=== PATIENT | male | born 1960 | race Caucasian/White ===

== ENCOUNTER → 2016-05-14 | Outpatient (CLI) | payer OTHER ==
[2016-05-14 13:30] LABS: BASO % 0.7 % (0.0-1.0); EOS # 0.2 K/mm3 (0.0-0.50); LARGE UNSTAINED CELL # 0.2 K/mm3 (0.0-0.4); LARGE UNSTAINED CELL % 3.2 % (0.0-4.0); LYMPH # 1.9 K/mm3 (1.5-4.5); LYMPH % 32.6 % (24.0-44.0); MEAN CORPUSCULAR HEMOGLOBIN 31.3 pg (27.0-33.0); MEAN CORPUSCULAR HGB CONC 33.7 g/dl (32.0-36.5); MEAN CORPUSCULAR VOLUME 92.8 fl (80.0-96.0); MONO # 0.4 K/mm3 (0.0-0.8); MONO % 6.1 % (0.0-5.0); NEUTROPHILS # 3.1 K/mm3 (1.8-7.7); NEUTROPHILS % 53.3 % (36.0-66.0); PLATELET COUNT, AUTOMATED 211 k/mm3 (150-450); WHITE BLOOD COUNT 5.9 K/mm3 (4.0-10.0)
[2016-05-14 13:41] LABS: ALBUMIN 3.8 GM/DL (3.2-5.2); ALKALINE PHOSPHATASE 107 U/L (45-117); ALT/SGPT 26 U/L (12-78); ANION GAP 9 MEQ/L (8-16); AST/SGOT 16 U/L (15-37); BILIRUBIN,TOTAL 0.4 MG/DL (0.2-1.0); BLOOD UREA NITROGEN 12 MG/DL (7-18); CALCIUM LEVEL 9.3 MG/DL (8.5-10.1); CARBON DIOXIDE LEVEL 28 MEQ/L (21-32); CHLORIDE LEVEL 104 MEQ/L (98-107); CHOLESTEROL LEVEL 193 MG/DL (<200); CREATININE FOR GFR 1.02 MG/DL (0.70-1.30); GLOMERULAR FILTRATION RATE > 60.0 (>56); GLUCOSE, FASTING 94 MG/DL (70-105); POTASSIUM SERUM 4.6 MEQ/L (3.5-5.1); SODIUM LEVEL 141 MEQ/L (136-145); TOTAL PROTEIN 7.6 GM/DL (6.4-8.2); TRIGLYCERIDES LEVEL 135 MG/DL (<150)
== END ==
LOC: M WUC 09:54
PROVIDERS: ATTEND Physician Assistant Medical
DX: Z12.5 Encounter for screening for malignant neoplasm of prostate (principal); Z79.1 Long term (current) use of non-steroidal anti-inflammatories (NSAID); E78.2 Mixed hyperlipidemia

== ENCOUNTER → 2017-02-27 | Outpatient (CLI) | payer OTHER ==
--- NOTE | 2017-03-01 13:31 | SLEEPCENT ---
DATE OF STUDY: 02/27/2017 ORDERED BY: ANA LAURA Godinez Nocturnal polysomnography was performed for assessment of sleep physiology in this patient with a history of excessive somnolence and nonrestorative sleep. 7 hours and 42 minutes of data were reviewed. There were 420 minutes of sleep identified. Sleep latency was normal at 11 minutes. Rapid eye movement (REM) was normal at 73 minutes. Sleep architecture showed some fragmentation but sleep progression was intact. There were 4 REM cycles noted. Overall sleep efficiency was 91.8%. The patient's electrocardiogram showed a sinus rhythm with an average heart rate of 68 beats per minute. EEG showed normal waveforms for awake and sleep. There were 124 respiratory events identified of 10 seconds in duration or greater for an apnea hypopnea index of 17.7. The events were primarily obstructive, not exclusive to sleep stage nor body posture. Arousals from respiratory events occurred 4.3 times per hour and oxygen desaturations were seen into the low 80s. Some limb activity was also noted. Limb movement arousal index was borderline at 5.1. IMPRESSION: Obstructive sleep apnea syndrome (G47.33). Apnea hypopnea index 17.7. RECOMMENDATION: The patient should be encouraged to return to the sleep disorder center for pressure therapy. In the interim, alcohol and sedative avoidance should be practiced and caution exercised during the operation of motor vehicles.
== END ==
LOC: M SLEEP 20:00
PROVIDERS: ATTEND Nurse Practitioner Adult Health
DX: G47.33 Obstructive sleep apnea (adult) (pediatric) (principal)

== ENCOUNTER → 2017-04-15 | Outpatient (CLI) | payer OTHER | LOC: M SLEEP 19:41 | DX: G47.33 Obstructive sleep apnea (adult) (pediatric) (principal) | CPT/HCPCS: 95811 ==

== ENCOUNTER → 2017-05-26 | Outpatient (CLI) | payer OTHER ==
[2017-05-26 09:41] LABS: ANION GAP 5 MEQ/L (8-16); BLOOD UREA NITROGEN 12 MG/DL (7-18); CALCIUM LEVEL 8.9 MG/DL (8.5-10.1); CARBON DIOXIDE LEVEL 30 MEQ/L (21-32); CHLORIDE LEVEL 107 MEQ/L (98-107); CHOLESTEROL LEVEL 185 MG/DL (<200); CHOLESTEROL RISK RATIO 4.868 (<5); CREATININE FOR GFR 1.03 MG/DL (0.70-1.30); GLOMERULAR FILTRATION RATE > 60.0 (>56); GLUCOSE, FASTING 101 MG/DL (70-100); HDL CHOLESTEROL 38 MG/DL (>40); LDL CHOLESTEROL 121.8 MG/DL (<100); NON-HDL-C 147 MG/DL; PROSTATIC SPECIFIC AG MONITOR 0.51 NG/ML (< 4.0); SODIUM LEVEL 142 MEQ/L (136-145); TRIGLYCERIDES LEVEL 126 MG/DL (<150)
== END ==
LOC: M WUC 08:11
DX: E78.2 Mixed hyperlipidemia (principal); Z12.5 Encounter for screening for malignant neoplasm of prostate
CPT/HCPCS: 84153

== ENCOUNTER → 2018-05-25 | Outpatient (CLI) | payer OTHER ==
[2018-05-25 11:22] LABS: BLOOD UREA NITROGEN 15 MG/DL (7-18); CALCIUM LEVEL 8.9 MG/DL (8.5-10.1); CARBON DIOXIDE LEVEL 28 MEQ/L (21-32); CHLORIDE LEVEL 104 MEQ/L (98-107); CHOLESTEROL LEVEL 184 MG/DL (<200); CHOLESTEROL RISK RATIO 5.111 (<5); CREATININE FOR GFR 1.04 MG/DL (0.70-1.30); GLOMERULAR FILTRATION RATE > 60.0 (>56); GLUCOSE, FASTING 84 MG/DL (70-100); HDL CHOLESTEROL 36 MG/DL (>40); LDL CHOLESTEROL 119 MG/DL (<100); NON-HDL-C 148 MG/DL; POTASSIUM SERUM 4.8 MEQ/L (3.5-5.1); SODIUM LEVEL 139 MEQ/L (136-145); TRIGLYCERIDES LEVEL 143 MG/DL (<150)
== END ==
LOC: M WUC 08:04
PROVIDERS: ATTEND Physician Assistant Medical
DX: E78.2 Mixed hyperlipidemia (principal); Z12.5 Encounter for screening for malignant neoplasm of prostate
CPT/HCPCS: 36415; 80048; 80061; G0103

== ENCOUNTER → 2019-05-23 | Outpatient (CLI) | payer OTHER ==
[2019-05-23 13:21] LABS: BASO # 0.1 10^3/uL (0.0-0.2); BASO % 0.8 % (0.0-1.0); EOS # 0.2 10^3/uL (0.0-0.5); EOS % 2.9 % (0.0-3.0); HEMOGLOBIN 14.6 g/dl (13.5-17.5); LYMPH % 33.8 % (24.0-44.0); MEAN CORPUSCULAR HEMOGLOBIN 31.5 pg (27.0-33.0); MEAN CORPUSCULAR HGB CONC 33.2 g/dl (32.0-36.5); MONO # 0.6 10^3/uL (0.0-0.8); MONO % 9.5 % (0.0-5.0); NEUTROPHILS # 3.1 10^3/uL (1.5-8.5); NEUTROPHILS % 52.7 % (36.0-66.0); PLATELET COUNT, AUTOMATED 234 10^3/uL (150-450); RED BLOOD COUNT 4.63 10^6/uL (4.30-6.10); WHITE BLOOD COUNT 5.9 10^3/uL (4.0-10.0)
[2019-05-23 13:30] LABS: ALBUMIN 3.8 GM/DL (3.2-5.2); ALT/SGPT 27 U/L (12-78); BILIRUBIN,TOTAL 0.5 MG/DL (0.2-1.0); BLOOD UREA NITROGEN 15 MG/DL (7-18); CALCIUM LEVEL 9.3 MG/DL (8.5-10.1); CARBON DIOXIDE LEVEL 32 MEQ/L (21-32); CHLORIDE LEVEL 105 MEQ/L (98-107); CHOLESTEROL LEVEL 189 MG/DL (<200); CHOLESTEROL RISK RATIO 5.727 (<5); CREATININE FOR GFR 1.05 MG/DL (0.70-1.30); GLOMERULAR FILTRATION RATE > 60.0 (>56); GLUCOSE, FASTING 97 MG/DL (70-100); HDL CHOLESTEROL 33 MG/DL (>40); LDL CHOLESTEROL 109 MG/DL (<100); NON-HDL-C 156 MG/DL; POTASSIUM SERUM 5.2 MEQ/L (3.5-5.1); SODIUM LEVEL 140 MEQ/L (136-145); TOTAL PROTEIN 7.3 GM/DL (6.4-8.2); TRIGLYCERIDES LEVEL 233 MG/DL (<150)
== END ==
LOC: M WUC 08:42
PROVIDERS: ATTEND Family Medicine
DX: Z00.00 Encounter for general adult medical examination without abnormal findings (principal); E78.5 Hyperlipidemia, unspecified; Z11.59 Encounter for screening for other viral diseases

== ENCOUNTER → 2020-01-29 | Outpatient (CLI) | payer OTHER ==
[2020-01-29 10:34] LABS: CHOLESTEROL RISK RATIO 4.159 (<5)
== END ==
LOC: M WUC 08:26
PROVIDERS: ATTEND Family Medicine
DX: E78.5 Hyperlipidemia, unspecified (principal)

== ENCOUNTER 2020-05-26 17:55 | Emergency (ER) | payer OTHER ==
[~2020-05-26] VITALS: Ht 182.9 cm; Wt 111.0 kg
[2020-05-26] MEDS ORDERED: MONT10TA10 PO (18:09)
[2020-05-26] MEDS ORDERED: VITA500079 PO (18:09)
[2020-05-26] MEDS ORDERED: OMEP1CAP73 PO (18:09)
[2020-05-26] MEDS ORDERED: LORA10TA PO (18:09)
[2020-05-26] MEDS ORDERED: FLON27.5 (18:09)
[2020-05-26] MEDS ORDERED: KETOROLAC 30 MG/ML 1ML VIAL IV ONE (19:05)
[2020-05-26] MEDS ORDERED: NS 1,000 ML IV ONE (19:05)
[2020-05-26] MEDS ORDERED: TAMSULOSIN 0.4 MG CAP PO ONE (19:05)
[2020-05-26 19:36] LABS: BASO % 0.2 % (0.0-1.0); EOS % 0.2 % (0.0-3.0); HEMATOCRIT 44.9 % (42.0-52.0); HEMOGLOBIN 14.5 g/dl (13.5-17.5); LYMPH # 1.2 10^3/uL (1.5-5.0); LYMPH % 9.8 % (24.0-44.0); MEAN CORPUSCULAR HEMOGLOBIN 30.2 pg (27.0-33.0); MEAN CORPUSCULAR HGB CONC 32.3 g/dl (32.0-36.5); MEAN CORPUSCULAR VOLUME 93.5 fl (80.0-96.0); MONO # 0.8 10^3/uL (0.0-0.8); MONO % 6.7 % (2.0-8.0); NEUTROPHILS # 10.3 10^3/uL (1.5-8.5); NEUTROPHILS % 82.6 % (36.0-66.0); PLATELET COUNT, AUTOMATED 233 10^3/uL (150-450); WHITE BLOOD COUNT 12.4 10^3/uL (4.0-10.0)
[2020-05-26 20:01] LABS: ALBUMIN 4.4 GM/DL (3.2-5.2); BILIRUBIN,DIRECT 0.1 MG/DL (0.0-0.2); BILIRUBIN,TOTAL 0.6 MG/DL (0.2-1.0); TOTAL PROTEIN 7.7 GM/DL (6.4-8.2)
--- NOTE | 2020-05-26 20:07 | REPVR ---
PROCEDURE INFORMATION: Exam: CT Abdomen And Pelvis Without Contrast Exam date and time: 05/26/2020 7:19 PM Age: 59 years old Clinical indication: Abdominal pain; Additional info: R flank pain radiating into R testicle. TECHNIQUE: Imaging protocol: Computed tomography of the abdomen and pelvis without contrast. Radiation optimization: All CT scans at this facility use at least one of these dose optimization techniques: automated exposure control; mA and/or kV adjustment per patient size (includes targeted exams where dose is matched to clinical indication); or iterative reconstruction. COMPARISON: No relevant prior studies available. FINDINGS: Lungs: There is bibasilar atelectasis. The lungs were not fully imaged. Heart: No cardiomegaly or pericardial effusion. Mediastinal space: There is a small sliding hiatal hernia. Diaphragm: Intact. Liver: Unremarkable. No liver lesion is identified. The contour of the liver is smooth. No hepatomegaly is noted. Gallbladder and bile ducts: No calcified gallstones are noted. No gallbladder wall thickening, pericholecystic fluid, or pericholecystic inflammatory changes are identified. No dilation of the bile ducts is noted. No calcified stones are seen in the common bile duct. Pancreas: Unremarkable. No dilation of the main pancreatic duct is noted. There is no inflammatory fat stranding around the pancreas to suggest acute pancreatitis. Spleen: Unremarkable. No splenomegaly is noted. Adrenal glands: Normal. No adrenal mass is noted. Kidneys and ureters: There is mild right hydronephrosis with right perinephric and right periureteral stranding secondary to a 3 mm calculus in the right distal ureter (image 123 of the axial series 201). No calculi are noted in the renal collecting systems or left ureter. No renal lesion is identified. Stomach and bowel: The intra-abdominal portion of the stomach and small bowel are unremarkable. There is sigmoid diverticulosis without evidence for diverticulitis. There is no evidence for a bowel obstruction, colitis, pneumatosis intestinalis, intussusception, volvulus, or perforated viscus. Appendix: Normal. There is no evidence for appendicitis. Intraperitoneal space: Unremarkable. No fluid collection. No free air. Retroperitoneal space: No fluid collection. No mass. Vasculature: The abdominal aorta is normal in caliber. There are mild atherosclerotic calcifications. Lymph nodes: Normal. No enlarged lymph nodes. Urinary bladder: The partially distended urinary bladder is unremarkable. No stones or masses are seen in the bladder. Reproductive: There is a punctate calcification in the prostate gland. The seminal vesicles are unremarkable. Bones/joints: There is no fracture or dislocation. No suspicious osteolytic or osteoblastic lesion. There is partial ankylosis of the right sacroiliac joint. There are degenerative changes involving the lumbar spine. There is mild osteoarthritis of both hip joints. Soft tissues: There is a small fat containing umbilical hernia. IMPRESSION: 1. 3 mm calculus in the right distal ureter and mild right hydroureteronephrosis. 2. Sigmoid diverticulosis without evidence for diverticulitis. 3. Small fat containing umbilical hernia. Electronically signed by: Shashank Cary On 05/26/2020 20:08:43 PM
[2020-05-26] MEDS ORDERED: HYDR-3713 PO (20:39)
[2020-05-26] MEDS ORDERED: FLOM0.4C39 PO (20:39)
[2020-05-26 21:18] VITALS: BP 134/72
== END 2020-05-26 22:30 | disposition home or self-care (01) ==
LOC: M ED 17:55
DX: N20.1 Calculus of ureter (principal); G47.33 Obstructive sleep apnea (adult) (pediatric); Z88.8 Allergy status to other drugs, medicaments and biological substances; Z79.899 Other long term (current) drug therapy
CPT/HCPCS: 74176; 80047; 80076; 81001; 83690; 85025; 96361; 96374; 99284; J1885

== ENCOUNTER 2020-05-27 19:07 | Emergency (ER) | payer OTHER ==
[~2020-05-27] VITALS: Ht 182.9 cm; Wt 111.0 kg
[~2020-05-27 19:07] MED LIST: FLOM0.4C39 PO; FLON27.5; HYDR-3713 PO; LORA10TA PO; MONT10TA10 PO; OMEP1CAP73 PO; VITA500079 PO
[2020-05-27 20:52] LABS: BASO % 0.2 % (0.0-1.0); EOS % 0.2 % (0.0-3.0); HEMOGLOBIN 13.9 g/dl (13.5-17.5); LYMPH # 0.9 10^3/uL (1.5-5.0); LYMPH % 8.3 % (24.0-44.0); MEAN CORPUSCULAR HEMOGLOBIN 31.1 pg (27.0-33.0); MEAN CORPUSCULAR HGB CONC 33.1 g/dl (32.0-36.5); MONO # 0.7 10^3/uL (0.0-0.8); MONO % 6.6 % (2.0-8.0); NEUTROPHILS # 8.9 10^3/uL (1.5-8.5); NEUTROPHILS % 84.3 % (36.0-66.0); PLATELET COUNT, AUTOMATED 190 10^3/uL (150-450); RED BLOOD COUNT 4.47 10^6/uL (4.30-6.10); WHITE BLOOD COUNT 10.5 10^3/uL (4.0-10.0)
[2020-05-27 21:20] LABS: APPEARANCE, URINE CLEAR (CLEAR); BACTERIA, URINE AUTO NEGATIVE (NEGATIVE); BILIRUBIN, URINE AUTO NEGATIVE (NEGATIVE); BLOOD, URINE BLOOD 2+ (NEGATIVE); COLOR, URINE YELLOW (YELLOW); GLUCOSE, URINE (UA) AUTO NEGATIVE (NEGATIVE); KETONE, URINE AUTO 2+ mg/dL (NEGATIVE); LEUKOCYTE ESTERASE, URINE AUTO NEGATIVE (NEGATIVE); MUCUS, URINE SMALL (NEGATIVE); NITRITE, URINE AUTO NEGATIVE (NEGATIVE); PROTEIN, URINE AUTO 1+ mg/dL (NEGATIVE); RBC, URINE AUTO 11 /HPF (0-3); SPECIFIC GRAVITY URINE AUTO 1.026 (1.002-1.035); SQUAMOUS EPITHELIAL CELL UR AU 0 /HPF (0-6); UROBILINOGEN, URINE AUTO 0.2 mg/dL (0.0-2.0); WBC, URINE AUTO 2 /HPF (0-3)
--- NOTE | 2020-05-27 21:21 | REPVR ---
PROCEDURE INFORMATION: Exam: CT Head Without Contrast Exam date and time: 05/27/2020 8:28 PM Age: 59 years old Clinical indication: Dizziness; Additional info: Dizzy TECHNIQUE: Imaging protocol: Computed tomography of the head without contrast. Radiation optimization: All CT scans at this facility use at least one of these dose optimization techniques: automated exposure control; mA and/or kV adjustment per patient size (includes targeted exams where dose is matched to clinical indication); or iterative reconstruction. COMPARISON: No relevant prior studies available. FINDINGS: Brain: Normal. No hemorrhage. Unremarkable white matter. No mass effect. Cerebral ventricles: No ventriculomegaly. Bones/joints: Unremarkable. No acute fracture. Paranasal sinuses: Visualized sinuses are unremarkable. No fluid levels. Mastoid air cells: Visualized mastoid air cells are well aerated. Soft tissues: Unremarkable. IMPRESSION: No acute intracranial abnormality. Electronically signed by: Zackery Joyner On 05/27/2020 21:22:30 PM
[2020-05-27 21:27] LABS: ALBUMIN 3.6 GM/DL (3.2-5.2); BILIRUBIN,DIRECT 0.2 MG/DL (0.0-0.2); BILIRUBIN,TOTAL 0.7 MG/DL (0.2-1.0); TOTAL PROTEIN 6.8 GM/DL (6.4-8.2)
[2020-05-27 21:30] LABS: RSV AMPLIFICATION NEGATIVE (NEGATIVE)
[2020-05-27] MEDS ORDERED: NORCO, ANEXSIA 5/325MG TABLET (HYDROcodone/ACETAMINOPHEN) PO ONE (21:45)
[2020-05-27 21:56] VITALS: BP 139/67
--- NOTE | 2020-05-28 00:37 | ECGEPIP ---
[facility] - ED Test Date: 2020-05-27 Pat Name: JOSIAH MENA Department: Room: - Gender: Male Health Companion: EVELYN : 1960 Requested By: SEVERINO MERIDA Order Number: [id number] Reading MD: Avi Jeff Measurements Intervals [place] Rate: 72 P: 47 [place]: 150 QRS: 24 QRSD: 82 T: 29 QT: 378 QTc: 413 Interpretive Statements Normal sinus rhythm NO PRIORS FOR COMPARISON Electronically Signed on 05-28-2020 0:36:53 EST by Avi Jeff
== END 2020-05-27 21:58 | disposition home or self-care (01) ==
LOC: M ED 19:07
DX: B34.9 Viral infection, unspecified (principal); F41.9 Anxiety disorder, unspecified; Z79.899 Other long term (current) drug therapy; Z88.8 Allergy status to other drugs, medicaments and biological substances

== ENCOUNTER → 2020-06-09 | Outpatient (REF) | payer OTHER | LOC: M SMT 13:25 | PROVIDERS: ATTEND Nurse Practitioner Family | DX: N20.0 Calculus of kidney (principal) ==

== ENCOUNTER → 2020-07-21 | Outpatient (CLI) | payer OTHER ==
[2020-07-21 10:32] LABS: BASO % 0.7 % (0.0-1.0); EOS # 0.2 10^3/uL (0.0-0.5); EOS % 2.9 % (0.0-3.0); HEMATOCRIT 43.7 % (42.0-52.0); HEMOGLOBIN 14.1 g/dl (13.5-17.5); LYMPH # 1.8 10^3/uL (1.5-5.0); LYMPH % 32.7 % (24.0-44.0); MEAN CORPUSCULAR HEMOGLOBIN 30.6 pg (27.0-33.0); MEAN CORPUSCULAR HGB CONC 32.3 g/dl (32.0-36.5); MEAN CORPUSCULAR VOLUME 94.8 fl (80.0-96.0); MONO # 0.5 10^3/uL (0.0-0.8); MONO % 9.5 % (2.0-8.0); PLATELET COUNT, AUTOMATED 238 10^3/uL (150-450); RED BLOOD COUNT 4.61 10^6/uL (4.30-6.10); WHITE BLOOD COUNT 5.5 10^3/uL (4.0-10.0)
[2020-07-21 11:02] LABS: ALBUMIN 3.8 GM/DL (3.2-5.2); ALT/SGPT 20 U/L (12-78); BILIRUBIN,TOTAL 0.5 MG/DL (0.2-1.0); BLOOD UREA NITROGEN 9 MG/DL (7-18); CALCIUM LEVEL 9.2 MG/DL (8.5-10.1); CARBON DIOXIDE LEVEL 29 MEQ/L (21-32); CHLORIDE LEVEL 106 MEQ/L (98-107); CHOLESTEROL LEVEL 176 MG/DL (<200); CHOLESTEROL RISK RATIO 4.292 (<5); CREATININE FOR GFR 0.92 MG/DL (0.70-1.30); GLOMERULAR FILTRATION RATE > 60.0 (>56); GLUCOSE, FASTING 101 MG/DL (70-100); HDL CHOLESTEROL 41 MG/DL (>40); LDL CHOLESTEROL 112 MG/DL (<100); NON-HDL-C 135 MG/DL; POTASSIUM SERUM 4.6 MEQ/L (3.5-5.1); SODIUM LEVEL 139 MEQ/L (136-145); TOTAL PROTEIN 7.1 GM/DL (6.4-8.2); TRIGLYCERIDES LEVEL 113 MG/DL (<150)
== END ==
LOC: M WUC 08:16
PROVIDERS: ATTEND Family Medicine
DX: Z00.00 Encounter for general adult medical examination without abnormal findings (principal)

== ENCOUNTER 2021-02-18 07:46 | Observation (INO) | payer OTHER ==
[~2021-02-18] VITALS: Ht 182.9 cm; Wt 97.6 kg
[~2021-02-18 07:46] MED LIST changes: -FLON27.5; +FLON27.5 NARES
[2021-02-18 08:25] LABS: BASO % 0.3 % (0.0-1.0); EOS # 0.1 10^3/uL (0.0-0.5); EOS % 0.9 % (0.0-3.0); HEMATOCRIT 42.3 % (42.0-52.0); HEMOGLOBIN 14.5 g/dl (13.5-17.5); LYMPH # 0.8 10^3/uL (1.5-5.0); MEAN CORPUSCULAR HEMOGLOBIN 31.8 pg (27.0-33.0); MEAN CORPUSCULAR HGB CONC 34.3 g/dl (32.0-36.5); MEAN CORPUSCULAR VOLUME 92.8 fl (80.0-96.0); MONO # 0.5 10^3/uL (0.0-0.8); MONO % 5.1 % (2.0-8.0); NEUTROPHILS # 8.2 10^3/uL (1.5-8.5); NEUTROPHILS % 85.2 % (36.0-66.0); PLATELET COUNT, AUTOMATED 200 10^3/uL (150-450); RED BLOOD COUNT 4.56 10^6/uL (4.30-6.10); WHITE BLOOD COUNT 9.7 10^3/uL (4.0-10.0)
--- NOTE | 2021-02-18 08:53 | REP ---
INDICATION: trauma COMPARISON: 05/27/2020 TECHNIQUE: Axial noncontrast images from the skull base to the vertex with coronal reformations. This CT examination was performed using the following dose reduction techniques: Automated exposure control, adjustment of mA and/or kv according to the patient's size, and use of iterative reconstruction technique. FINDINGS: The ventricles, sulci, and cisterns are normal in position and appearance. Lind-white differentiation is maintained. No acute intracranial hemorrhage, mass/mass effect, pathology or trauma/injury. No evidence for acute infarction. No extra-axial fluid collection. Calvarium is intact. Paranasal sinuses and mastoid air cells are clear. Artifact limits evaluation of the posterior fossa and cerebellum. IMPRESSION: No evidence for acute intracranial pathology or trauma/injury. <Electronically signed by Femi Dumont > 02/18/21 [id number]
--- NOTE | 2021-02-18 08:54 | REP ---
INDICATION: trauma COMPARISON: None. TECHNIQUE: Axial noncontrast images from the skull base to the thoracic inlet with coronal and sagittal re-formations This CT examination was performed using the following dose reduction techniques: Automated exposure control, adjustment of mA and/or kv according to the patient's size, and use of iterative reconstruction technique. FINDINGS: Mild age-related multilevel degenerative changes. Normal alignment and lordosis is maintained. Cervical vertebral bodies including transverse processes and spinous processes are intact and there is no evidence for acute fracture / compression injury or subluxation. Spinal canal is patent. Posterior elements are intact. Paravertebral soft tissues are normal. IMPRESSION: Age-related degenerative changes. No evidence for acute pathology or trauma/injury. <Electronically signed by Femi Dumont > 02/18/21 [id number]
[2021-02-18 09:06] LABS: BLOOD UREA NITROGEN 13 MG/DL (7-18); CARBON DIOXIDE LEVEL 24 MEQ/L (21-32); CHLORIDE LEVEL 110 MEQ/L (98-107); CREATININE FOR GFR 0.98 MG/DL (0.70-1.30); FREE T4 1.07 NG/DL (0.76-1.46); GLOMERULAR FILTRATION RATE > 60.0 (>56); GLUCOSE, FASTING 125 MG/DL (70-100); MAGNESIUM LEVEL 2.2 MG/DL (1.8-2.4); POTASSIUM SERUM 4.8 MEQ/L (3.5-5.1); SODIUM LEVEL 140 MEQ/L (136-145)
[2021-02-18] MEDS ORDERED: ONDANSETRON 4MG/2ML VIAL IV ONE (09:10)
--- NOTE | 2021-02-18 09:11 | ECGEPIP ---
[facility] - ED Test Date: 2021-02-18 Pat Name: JOSIAH MENA Department: Room: - Gender: Male [employer] Sales Associate: Krysta ARANGO : 1960 Requested By: Natividad Byrne Order Number: [id number] Reading MD: Avi Jeff Measurements Intervals [place] Rate: 82 P: 54 [place]: 154 QRS: 32 QRSD: 86 T: 38 QT: 384 QTc: 448 Interpretive Statements Normal sinus rhythm BASELINE ARTIFACT AFFECTS INTERPRETATION Electronically Signed on 02-18-2021 9:11:26 EST by Avi Jeff
[2021-02-18] MEDS: MORPHINE 2 MG/ML 1ML VIAL (J2270) IV PRN ×2 (09:22→10:44)
--- OUTSIDE RECORDS SUMMARY | 2021-02-18 09:24 | CCD | Continuity of Care Document ---
Author Author Geoff NEELY M.D. Organization Unknown Address [address], [place] [address] Phone [phone] Care Team Providers Care Head Transfer Clerk Name Role Phone Leena Villatoro Unavailable Problems Active Problems Provider Date Allergic rhinitis due to pollen Onset: 0 04/13/2018 Note: On IT. 4+ reaction to grass pollen with 3+ reaction to ragweed and willow tree pollen on scratch test. 4+ reaction to weed pollen on intradermal test Completed 2018. Allergic rhinitis due to house dust mite Sanford Neely M.D. Onset: 09/25/2019 Note: On IT. 3+ reaction to dust mites o n intradermal test. Completed 2018. Social History Type Date Description Comments Sex Unknown Tobacco Use Start: 03/21/96 End: 03/21/99 Patient is a forme r smoker Document: 03/27/19 - History-Allergy Smoking Status Reviewed: 09/24/20 Patient is a former smoker Do cument: 03/27/19 - History-Allergy Allergies and adverse reactions Active Allergies Criticality Reaction | Severity Comments Date Mickey Unable to assess criticality 03/27/2019 Medications Active Medications SIG Qnty Indications Ordering Provide r Date Loratadine 10mg Tablets take 1 tablet (10 mg) by oral route once daily 90tabs Sanford Neely M.D. 05/23/2019 Azelastine HCL (Nasal) 137mcg/[place] Solution 2 sprays each nostril every day every morning for 90 days 90ml J30.89 Sanford Neely M.D. 04/02/2019 Fluticasone Propionate Nasal [place] Light Aller gy Relief 24- Hour 50mcg/Act Suspension inhale 2 puffs by nasal route once a day (in the evening) Unknown 09/26/2018 Montelukast Sodium 10mg Tablets take 1 tablet (10 mg) by oral route once daily in the evening 90tabs J30.8 9 Sanford Neely M.D. 09/26/2018 Omeprazole Magnesium 20.6(20Base) mg Capsules DR take 1 capsule (20 mg) by oral route once daily before a meal Unknown Vitamin D3 50mcg (1999 Ut) Capsules Unknown Medications Administered in Office Medication SIG Qnty Indications Ordering Provider Date Allergy Injection 2 Or More Injection Sanford Neely M.D. 02/09/2021 Allergy Injection 2 Or More Injection Sanford Neely M.D. 01/12/2021 Allergy Injection 2 Or More Injection Sanford Neely M.D. 12/22/2020 Allergy Injection 2 Or More Injection Sanford Neely M.D. 12/03/2020 Allergy Injection 2 Or More Injection Sanford Neely M.D. 11/10/2020 Allergy Injection 2 Or More Injection Sanford Neely M.D. 10/13/2020 Allergy Injection 2 Or More Injection Sanford Neely M.D. 09/24/2020 Allergy Injection 2 Or More Injection Sanford Neely M.D. 09/02/2020 Allergy Injection 2 Or More Injection Sanford Neely M.D. 08/13/2020 Allergy Injection 2 Or More Injection Sanford Neely M.D. 07/21/2020 Allergy Injection 2 Or More Injection Sanford Neely M.D. 06/30/2020 Allergy Injection 2 Or More Injection Sanford Neely M.D. 06/09/2020 Allergy Injection 2 Or More Injection Sanford Neely M.D. 05/12/2020 Allergy Injection 2 Or More Injection Sanford Neely M.D. 04/21/2020 Allergy Injection 2 Or More Injection Sanford Neely M.D. 03/31/2020 Allergy Injection 2 Or More Injection Sanford Neely M.D. 03/11/2020 Allergy Injection 2 Or More Injection Sanford Neely M.D. 02/19/2020 Allergy Injection 2 Or More Injection Sanford Neely M.D. 01/29/2020 Allergy Injection 2 Or More Injection Sanford Neely M.D. 01/10/2020 Allergy Injection 2 Or More Injection ANA LAURA Fry 12/17/2019 Allergy Injection 2 Or More Injection Sanford Neely M.D. 12/17/2019 Allergy Injection 2 Or More Injection Sanford Neely M.D. 11/28/2019 Allergy Injection 2 Or More Injection Sanford Neely M.D. 11/05/2019 Allergy Injection 2 Or More Injection Sanford Neely M.D. 10/16/2019 Allergy Injection 2 Or More Injection Sanford Neely M.D. 09/26/2019 Allergy Injection 2 Or More Injection Sanford Neely M.D. 09/04/2019 Allergy Injection 2 Or More Injection Sanford Neely M.D. 08/15/2019 Allergy Injection 2 Or More Injection Sanford Neely M.D. 07/25/2019 Allergy Injection 2 Or More Injection Sanford Neely M.D. 07/04/2019 Allergy Injection 2 Or More Injection Sanford Neely M.D. 06/13/2019 Allergy Injection 2 Or More Injection Sanford Neely M.D. 05/23/2019 Allergy Injection 2 Or More Injection Sanford Neely M.D. 05/01/2019 Allergy Injection 2 Or More Injection Sanford Neely M.D. 04/11/2019 Allergy Injection 2 Or More Injection Marc Gunn.Elias 03/19/2019 Allergy Injection 2 Or More Injection Sanford Neely M.D. 02/26/2019 Allergy Injection 2 Or More Injection Marc Gunn.Elias 02/06/2019 Allergy Injection 2 Or More Injection Marc Gunn.DWalter 01/17/2019 Allergy Injection 2 Or More Injection Marc Gunn.Elias 01/05/2019 Allergy Injection 2 Or More Injection Sanford Neely M.D. 12/28/2018 Allergy Injection 2 Or More Injection CHINTAN Mckeon 12/19/2018 Allergy Injection 2 Or More Injection Sanford Neely M.D. 12/19/2018 Allergy Injection 2 Or More Injection CHINTAN Mckeon 12/12/2018 Allergy Injection 2 Or More Injection Sanford Neely M.D. 12/12/2018 Allergy Injection 2 Or More Injection Sanford Neely M.D. 12/05/2018 Allergy Injection 2 Or More Injection Sanford Neely M.D. 11/28/2018 Allergy Injection 2 Or More Injection Sanford Neely M.D. 11/22/2018 Allergy Injection 2 Or More Injection Sanford Neely M.D. 11/16/2018 Immunizations Description No Information Available Vital Signs Date Vital Result Comment 09/24/2020 8:41am Weight 218.25 lb Height 72 inches 6'0" Heart Rate 63 /min Respiratory Rate 16 /min BP Systolic 109 mmHg BP Diastolic 70 mmHg BMI (Body Mass Index) 29.6 kg/m2 09/25/2019 8:40am Weight 249.00 lb Height 72 inches 6'0" Heart Rate 85 /min Respiratory Rate 18 /min BP Systolic 116 mmHg BP Diastolic 74 mmHg BMI (Body Mass Index) 33.8 kg/m2 Results Description No Information Available Procedures Date Code Description Status 02/09/2021 49858 Allergy Injection 2 Or More Comp leted 01/12/2021 67689 Allergy Injection 2 Or More Comp leted 01/09/2021 68086 Allergy Antigens Single Or Multi ple Completed 12/22/2020 48837 Allergy Injection 2 Or More Comp leted 12/03/2020 97219 Allergy Injection 2 Or More Comp leted 11/10/2020 92068 Allergy Injection 2 Or More Comp leted 10/13/2020 11263 Allergy Injection 2 Or More Comp leted 09/24/2020 50195 Office/Outpatient Established Lo w MDM 20-29 Min Completed 09/24/2020 91756 Allergy Injection 2 Or More Comp leted 09/02/2020 23266 Allergy Injection 2 Or More Comp leted 08/22/2020 38939 Allergy Antigens Single Or Multi ple Completed 08/13/2020 89288 Allergy Injection 2 Or More Comp leted Medical Devices Description No Information Available Encounters Description No Information Available Assessments Date Code Description Provider 02/09/2021 J30.1 Allergic rhinitis due to pollen Sanford Neely M.D. 02/09/2021 J30.89 Other allergic rhinitis Sanford Neely M.D. Plan of Treatment Future Appointment(s):* 03/02/2021 10:00 am - Allergy Injection at Main Office * 09/23/2021 8:45 am - Sanford Neely M.D. at Main Office 09/24/2020 - Sanford Neely M.D.* J30.89 Allergic rhinitis due to dust mites.* Recommendations:* Effective allergen avoidance measures were reviewed and recommended. The patient should continue on maintenance allergen immunotherapy as per protocol. The risks and benefits associated with allergen IT were reviewed and discussed. It was discussed that he may try to discontinue Singulair and see how he does without it. If his rhinitis symptoms increase, may consider to restart steroid-based nasal spray (Flonase). The nasal spray should be used on a consistent, daily basis to be effective. He may take oral antihistamine as needed for itching and/or sneezing and on days he gets his allergy injections. * J30.1 Allergic rhinitis due to pollen* Recommendations:* Effective allergen avoidance measures were reviewed and recommended. See additional recommendations above. * All * Follow up:* 12 months. Sooner if needed. Functional Status Description No Information Available Mental Status Description No Information Available Referrals Description No Information Available
--- OUTSIDE RECORDS SUMMARY | 2021-02-18 09:24 | CCD | Continuity of Care Document ---
Author Author Geoff MARTINEZ MD Organization Unknown Address [address] [address] Phone [phone] Care Team Providers Care Wheat And Oats Flake Miller Name Role Phone Jackie Walters M.D. AUTM [phone] AUTM Unavailable Problems Active Problems Provider Date Disturbance of consciousness Carrie Mireles A.N.P. Onse t: 02/16/2017 Sleep apnea Carrie Mireles A.[place]uan Onset: 2016 Social History Type Date Description Comments Sex Unknown ETOH Use 1 A Day Recreational Drug Use Denies Drug Use Tobacco Use Start: Unknown End: Unknown Patient is a former smoker 1/2 ppd for 1 year Quit 2000 Allergies and adverse reactions Active Allergies Criticality Reaction | Severity Comments Date Mickey Unable to assess criticality 02/16/2017 Medications Active Medications SIG Qnty Indications Ordering Provide r Date Omeprazole 20mg Capsules DR 1 by mouth every day Unknown Loratadine 10mg Tablets 1 by mouth every day Unknown Vitamin D3 Maximum Strength 125mcg (5000 Ut) Capsules 1 qd Unknown Montelukast Sodium 10mg Tablets 1 qd Unknown Fluticasone Propionate 50mcg/Act Suspension 2 sprays to each nostril daily as needed Unknown Azelastine HCL (Nasal) 0.1% Soluti on as needed Unknown Aleve 220mg Capsules as neede d Unknown Allergy Shots every 3 weeks Unknown Immunizations Description No Information Available Vital Signs Date Vital Result Comment 02/16/2021 9:33am BP Systolic 151 mmHg BP Diastolic 84 mmHg Heart Rate 59 /min Body Temperature 98.3 F Height 72 inches 6'0" Weight 217.25 lb BMI (Body Mass Index) 29.5 kg/m2 [facility] Body Weight 178 lb Weight 98.545 kg BSA (Body Surface Area) 2.21 m2 03/22/2017 9:01am BP Systolic 128 mmHg BP Diastolic 70 mmHg Heart Rate 80 /min O2 % BldC Oximetry 97 % Height 72.5 inches Weight 250.00 lb BMI (Body Mass Index) 33.4 kg/m2 Weight 113.398 kg Results Description No Information Available Procedures Description No Information Available Medical Devices Description No Information Available Encounters Description No Information Available Assessments Description No Information Available Plan of Treatment No Information Available Functional Status Description No Information Available Mental Status Description No Information Available Referrals Refer to Reason for Referral Status Appt Date Phuc Martinez M.D. COLONOSCOPY Scheduled 02/16/2021 [facility] [address] [place] [phone]
--- OUTSIDE RECORDS SUMMARY | 2021-02-18 09:25 | CCD ---
Author Author [facility] Organization [facility] Address Unknown Phone Unavailable Care Team Providers Care Air Hose Coupler Name Role Phone ELIZABETH NEELY MD Unavailable Unavailable ELIZABETH NEELY MD Unavailable Unavailable ELIZABETH NEELY MD Unavailable Unavailable ELIZABETH NEELY MD Unavailable Unavailable ELIZABETH NEELY MD Unavailable Unavailable ELIZABETH NEELY MD Unavailable Unavailable ELIZABETH NEELY MD Unavailable Unavailable ELIZABETH NEELY MD Unavailable Unavailable ELIZABETH NEELY MD Unavailable Unavailable ELIZABETH NEELY MD Unavailable Unavailable ELIZABETH NEELY MD Unavailable Unavailable ELIZABETH NEELY MD Unavailable Unavailable ELIZABETH NEELY MD Unavailable Unavailable ELIZABETH NEELY MD Unavailable Unavailable ELIZABETH NEELY MD Unavailable Unavailable ELIZABETH NEELY MD Unavailable Unavailable ELIZABETH NEELY MD Unavailable Unavailable ELIZABETH NEELY MD Unavailable Unavailable ELIZABETH NEELY MD Unavailable Unavailable ELIZABETH NEELY MD Unavailable Unavailable ELIZABETH NEELY MD Unavailable Unavailable ELIZABETH NEELY MD Unavailable Unavailable ELIZABETH NEELY MD Unavailable Unavailable ELIZABETH NEELY MD Unavailable Unavailable ELIZABETH NEELY MD Unavailable Unavailable ELIZABETH NEELY MD Unavailable Unavailable ELIZABETH NEELY MD Unavailable Unavailable CHROSTOWSKI, ELIZABETH DAI Unavailable Unavailable CHROSTOWSKI, ELIZABETH DAI Unavailable Unavailable CHROSTOWSKI, ELIZABETH DAI Unavailable Unavailable CHROSTOWSKI, ELIZABETH DAI Unavailable Unavailable CHROSTOWSKI, ELIZABETH DAI Unavailable Unavailable CHROSTOWSKI, ELIZABETH DAI Unavailable Unavailable CHROSTOWSKI, ELIZABETH DAI Unavailable Unavailable CHROSTOWSKI, ELIZABETH DAI Unavailable Unavailable CHROSTOWSKI, ELIZABETH DAI Unavailable Unavailable CHROSTOWSKI, ELIZABETH DAI Unavailable Unavailable CHROSTOWSKI, ELIZABETH DAI Unavailable Unavailable CHROSTOWSKI, ELIZABETH DAI Unavailable Unavailable Romeo, Leticia Mejia MD Unavailable Unavailable Romeo, Leticia Mejia MD Unavailable Unavailable Romeo, Leticia Mejia MD Unavailable Unavailable Romeo, Leticia Mejia MD Unavailable Unavailable Romeo, Leticia Mejia MD Unavailable Unavailable Romeo, Leticia Mejia MD Unavailable Unavailable Romeo, Leticia Mejia MD Unavailable Unavailable Romeo, Leticia Mejia MD Unavailable Unavailable Romeo, Leticia Mejia MD Unavailable Unavailable Romeo, Leticia Mejia MD Unavailable Unavailable Romeo, Leticia Mejia MD Unavailable Unavailable Romeo, Leticia Mejia MD Unavailable Unavailable Romeo, Leticia Mejia MD Unavailable Unavailable Romeo, Leticia Mejia MD Unavailable Unavailable Romeo, Leticia Mejia MD Unavailable Unavailable Romeo, Leticia Mejia MD Unavailable Unavailable Romeo, Leticia Mejia MD Unavailable Unavailable Romeo, Leticia Mejia MD Unavailable Unavailable Romeo, Leticia Mejia MD Unavailable Unavailable Romeo, Leticia Mejia MD Unavailable Unavailable Romeo, Leticia Mejia MD Unavailable Unavailable Romeo, Leticia Mejia MD Unavailable Unavailable Romeo, Leticia Mejia MD Unavailable Unavailable Romeo, Leticia Mejia MD Unavailable Unavailable Romeo, Leticia Mejia MD Unavailable Unavailable Romeo, Leticia Mejia MD Unavailable Unavailable Romeo, Leticia Mejia MD Unavailable Unavailable Romeo, Leticia Mejia MD Unavailable Unavailable Romeo, Leticia Mejia MD Unavailable Unavailable Romeo, Leticia Mejia MD Unavailable Unavailable Romeo, Leticia Mejia MD Unavailable Unavailable Romeo, Leticia Mejia MD Unavailable Unavailable Romeo, Leticia Mejia MD Unavailable Unavailable Romeo, Leticia Mejia MD Unavailable Unavailable Romeo, Leticia Mejia MD Unavailable Unavailable Romeo, Leticia Mejia MD Unavailable Unavailable Romeo, Leticia Mejia MD Unavailable Unavailable Romeo, Leticia Mejia MD Unavailable Unavailable Romeo, Leticia Mejia MD Unavailable Unavailable Romeo, Leticia Mejia MD Unavailable Unavailable Romeo, Leticia Mejia MD Unavailable Unavailable Romeo, Leticia Mejia MD Unavailable Unavailable Romeo, Leticia Mejia MD Unavailable Unavailable Romeo, Leticia Mejia MD Unavailable Unavailable Romeo, Leticia Mejia MD Unavailable Unavailable Romeo, Leticia Mejia MD Unavailable Unavailable Romeo, Leticia Mejia MD Unavailable Unavailable Romeo, A Jackie DAI Unavailable Unavailable Romeo, A Jackie DAI Unavailable Unavailable Romeo, A Jackie MD Unavailable Unavailable Romeo, A Jackie DAI Unavailable Unavailable Romeo, A Jackie DAI Unavailable Unavailable Romeo, A Jackie DAI Unavailable Unavailable Romeo, A Jackie DAI Unavailable Unavailable Romeo, A Jackie MD Unavailable Unavailable Romeo, A Jackie MD Unavailable Unavailable Romeo, A Jackie DAI Unavailable Unavailable Romeo, A Jackie MD Unavailable Unavailable Romeo, A Jackie MD Unavailable Unavailable Romeo, A Jackie MD Unavailable Unavailable Romeo, A Jackie MD Unavailable Unavailable Romeo, A Jackie MD Unavailable Unavailable Romeo, A Jackie MD Unavailable Unavailable Romeo, A Jackie MD Unavailable Unavailable Romeo, A Jackie MD Unavailable Unavailable Romeo, A Jackie MD Unavailable Unavailable Romeo, A Jackie MD Unavailable Unavailable Romeo, A Jackie MD Unavailable Unavailable Romeo, A Jackie MD Unavailable Unavailable Romeo, A Jackie MD Unavailable Unavailable Romeo, A Jackie MD Unavailable Unavailable Romeo, A Jackie MD Unavailable Unavailable Romeo, A Jackie MD Unavailable Unavailable Romeo, A Jackie MD Unavailable Unavailable Romeo, A Jackie DAI Unavailable Unavailable Romeo, A Jackie DAI Unavailable Unavailable Romeo, A Jackie MD Unavailable Unavailable Romeo, A Jackie MD Unavailable Unavailable Romeo, A Jackie MD Unavailable Unavailable Romeo, A Jackie MD Unavailable Unavailable Romeo, A Jackie MD Unavailable Unavailable Romeo, A Jackie DAI Unavailable Unavailable Hegard, Rox LOCKSTITCH LINING SETTER Unavailable Unavailable Hegard, Rox LOCKSTITCH LINING SETTER Unavailable Unavailable Hegard, Rox LOCKSTITCH LINING SETTER Unavailable Unavailable Hegard, Rox LOCKSTITCH LINING SETTER Unavailable Unavailable Hegard, Rox LOCKSTITCH LINING SETTER Unavailable Unavailable Hegard, Rox LOCKSTITCH LINING SETTER Unavailable Unavailable Hegard, Rox LOCKSTITCH LINING SETTER Unavailable Unavailable Hegard, Rox LOCKSTITCH LINING SETTER Unavailable Unavailable Hegard, Rox LOCKSTITCH LINING SETTER Unavailable Unavailable Hegard, Rox LOCKSTITCH LINING SETTER Unavailable Unavailable Hegard, Rox LOCKSTITCH LINING SETTER Unavailable Unavailable Hegard, Rox LOCKSTITCH LINING SETTER Unavailable Unavailable Hegard, Rox LOCKSTITCH LINING SETTER Unavailable Unavailable Hegard, Rox LOCKSTITCH LINING SETTER Unavailable Unavailable Hegard, Rox LOCKSTITCH LINING SETTER Unavailable Unavailable Hegard, Rox LOCKSTITCH LINING SETTER Unavailable Unavailable Hegard, Rox LOCKSTITCH LINING SETTER Unavailable Unavailable Re-disclosure Warning The records that you are about to access may contain information from federally-assisted alcohol or drug abuse programs. If such information is present, then the following federally mandated warning applies: This information has been disclosed to you from records protected by federal confidentiality rules (42 CFR part 2). The federal rules prohibit you from making any further disclosure of this information unless further disclosure is expressly permitted by the written consent of the person to whom it pertains or as otherwise permitted by 42 CFR part 2. A general authorization for the release of medical or other information is NOT sufficient for this purpose. The Federal rules restrict any use of the information to criminally investigate or prosecute any alcohol or drug abuse patient.The records that you are about to access may contain highly sensitive health information, the redisclosure of which is protected by Article 27-F of the [facility] Public Health law. If you continue you may have access to information: Regarding HIV / AIDS; Provided by facilities licensed or operated by the [facility] Office of Mental Health; or Provided by the [facility] Office for People With Developmental Disabilities. If such information is present, then the following [facility] mandated warning applies: This information has been disclosed to you from confidential records which are protected by state law. State law prohibits you from making any further disclosure of this information without the specific written consent of the person to whom it pertains, or as otherwise permitted by law. Any unauthorized further disclosure in violation of state law may result in a fine or long-term sentence or both. A general authorization for the release of medical or other information is NOT sufficient authorization for further disc losure. Family History Family Member Name Family Member Gender Family Member Status Date o f Status Description Data Source(s) Unknown Unknown Problem [facility] ([facility] Unknown Unknown Problem [facility] ([facility] Take medication daily year around Unknown Unknown Problem [facility] ([facility] Encounters Encounter Providers Location Date Indications Data Source(s ) Outpatient Attender: Rox MERIDA Main Office 1 03/28/2020 07:00:00 AM EST [facility] ([facility]) Outpatient Attender: ELIZABETH NEELY MD Main Office 09/24/2020 08:45:00 AM EDT [facility] ([facility]) Outpatient Attender: Jackie Walters MD Main Office 08/05/2020 07:15:0 0 AM EDT [facility] ([facility] Unknown [address] [place] [address] 06/15/2020 12:00:00 AM EDT eCW1 ([facility]) Outpatient [address] [place] [address] 06/09/2020 12:00:00 AM EDT eCW1 ([facility]) Outpatient Attender: Jackie Walters MD Main Office 05/27/2020 06:40:0 0 AM EST [facility] ([facility] Outpatient Attender: Jackie Walters MD Main Office 02/06/2020 06:15:0 0 AM EST [facility] ([facility] Immunizations Vaccine Date Status Description Data Source(s) New in 2012. IIV4 01/16/2021 07:28:00 AM EDT completed [facility] ([facility] Moderna Sars-(Covid-19) vaccine, mRNA, LNP-S, PF, 100 mcg/ 0.5 mL 07/08/2020 12:00:00 AM EDT completed [facility] ([facility] COVID-19 VACCINE Moderna 07/08/2020 12:00:00 AM EDT completed [facility] Vaccine Series Complete: YESThis Data wa s Submitted to [facility] Via [facility]. COVID-19 VACC,MRNA(MODERNA)/PF 07/08/2020 12:00:00 AM EDT completed [facility] Moderna Sars-(Covid-19) vaccine, mRNA, LNP-S, PF, 100 mcg/ 0.5 mL 06/06/2020 12:00:00 AM EDT completed [facility] ([facility] COVID-19 VACCINE Moderna 06/06/2020 12:00:00 AM EDT completed [facility] Vaccine Series Complete: NOThis Data was Submitted to [facility] Via [facility]. COVID-19 VACCINE, MRNA-1273, LNP-S (MODERNA)/PF 06/06/2020 1 2:00:00 AM EDT completed [facility] pneumococcal polysaccharide PPV23 02/06/2020 06:44:00 AM EST comple karl [facility] ([facility] New in 2012. IIV4 01/17/2020 08:19:00 AM EDT completed [facility] ([facility] Medications Medication Brand Name Start Date Product Form Dose Route Admi nistrative Instructions Pharmacy Instructions Status Indications Reaction Description Data Source(s) Allergy Injection 2 Or More 02/09/2021 12:00:00 AM EST completed [facility] ([facility] Medication administered onsite Allergy Injection 2 Or More 01/12/2021 12:00:00 AM EDT completed [facility] ([facility] Medication administered onsite Allergy Injection 2 Or More 12/22/2020 12:00:00 AM EDT completed [facility] ([facility] Medication administered onsite Allergy Injection 2 Or More 12/03/2020 12:00:00 AM EDT completed [facility] ([facility] Medication administered onsite Allergy Injection 2 Or More 11/10/2020 12:00:00 AM EDT completed [facility] ([facility] Medication administered onsite Allergy Injection 2 Or More 10/13/2020 12:00:00 AM EDT completed [facility] ([facility] Medication administered onsite Allergy Injection 2 Or More 09/24/2020 12:00:00 AM EDT completed [facility] ([facility] Medication administered onsite Allergy Injection 2 Or More 09/02/2020 12:00:00 AM EDT completed [facility] ([facility] Medication administered onsite Allergy Injection 2 Or More 08/13/2020 12:00:00 AM EDT completed [facility] ([facility] Medication administered onsite Allergy Injection 2 Or More 07/21/2020 12:00:00 AM EDT completed [facility] ([facility] Medication administered onsite Allergy Injection 2 Or More 06/30/2020 12:00:00 AM EDT completed [facility] ([facility] Medication administered onsite Allergy Injection 2 Or More 06/09/2020 12:00:00 AM EDT completed [facility] ([facility] Medication administered onsite Allergy Injection 2 Or More 05/12/2020 12:00:00 AM EST completed [facility] ([facility] Medication administered onsite Allergy Injection 2 Or More 04/21/2020 12:00:00 AM EST completed [facility] ([facility] Medication administered onsite Allergy Injection 2 Or More 03/31/2020 12:00:00 AM EST completed [facility] ([facility] Medication administered onsite Allergy Injection 2 Or More 03/11/2020 12:00:00 AM EST completed [facility] ([facility] Medication administered onsite Allergy Injection 2 Or More 02/19/2020 12:00:00 AM EST completed [facility] ([facility] Medication administered onsite Allergy Injection 2 Or More 01/29/2020 12:00:00 AM EST completed [facility] ([facility] Medication administered onsite Allergy Injection 2 Or More 01/10/2020 12:00:00 AM EDT completed [facility] ([facility] Medication administered onsite Diclofenac Sodium 75 MG Delayed Release Oral Tablet Diclofen ac Sodium 09/13/2019 12:00:00 AM EDT ORAL completed [facility] ([facility] Cyclobenzaprine hydrochloride 10 MG Oral Tablet Cyclobenzapr ine HCL 09/13/2019 12:00:00 AM EDT ORAL completed [facility] ([facility] Insurance Providers Payer name Policy type / Coverage type Policy ID Covered green party ID Covered green party's relationship to lind Policy Lind Plan Information [facility] (2018) Commercial [id number] Self [id number] [place] [employer] [id number] SP [id number] [facility] [id number] SP [id number] [place] Commercial [id number] Self [id number] [place] Commercial [id number] Self [id number] [place] Claim Commercial [id number] Self [id number] [facility] REGION [id number] SP [id number] [place] [employer] [id number] SP [id number] Prime Commercial [id number] Self [id number] Prime Commercial [id number] Self [id number] [employer] Commercial [id number] Self [id number] [employer] Commercial [id number] Self N REGIONAL CLAIMS VIKY -O/P [id number] 18 [id number] [facility] [id number] SP [id number] [employer] Commercial [id number] Self [employer] [id number] Other [facility] Program [id number] [place] Claim Commercial [id number] Self [id number] Problems, Conditions, and Diagnoses Code Display Name Description Problem Type Effective Dates Data Source(s) N20.0 Kidney stone Kidney stone Problem 06/09/2020 12:00:00 A M EDT eCW1 ([facility]) [id number] Kidney stone Kidney stone Problem 05/27/2020 12:00:00 A M EST [facility] ([facility] Surgeries/Procedures Procedure Description Date Indications Data Source(s) PROF IRIS NESS IMMNTX X W/PRV ALLGIC XTRCS NJXS 2020 12:00:00 AM EST [facility] ([facility]) OFFICE OUTPATIENT VISIT 25 MINUTES 01/26/2021 12:00:00 AM EST [facility] ([facility]) PROF SRINIVASAN AARONG IMMNTX X W/PRV ALLGIC XTRCS NJXS 2020 12:00:00 AM EDT [facility] ([facility]) PREPJ& ALLERGEN IMMUNOTHERAPY 1/PROFESSIONAL HOUSING CONSULTANT ANTIGEN 01/09/2021 12:00:00 AM EDT [facility] ([facility]) PROF IRIS WALKERG IMMNTX X W/PRV ALLGIC XTRCS NJXS 2020 12:00:00 AM EDT [facility] ([facility]) PROF IRIS WALKERG IMMNTX X W/PRV ALLGIC XTRCS NJXS 2020 12:00:00 AM EDT [facility] ([facility]) PROF SRINIVASAN AARONG IMMNTX X W/PRV ALLGIC XTRCS NJXS 2020 12:00:00 AM EDT [facility] ([facility]) PROF SRINIVASAN AARONG IMMNTX X W/PRV ALLGIC XTRCS NJXS 2020 12:00:00 AM EDT [facility] ([facility]) PROF SRINIVASAN AARONG IMMNTX X W/PRV ALLGIC XTRCS NJXS 2020 12:00:00 AM EDT [facility] ([facility]) OFFICE OUTPATIENT VISIT 15 MINUTES 09/24/2020 12:00:00 AM EDT [facility] ([facility]) PROF IRIS WALKERG IMMNTX X W/PRV ALLGIC XTRCS NJXS 2020 12:00:00 AM EDT [facility] ([facility]) PREPJ& ALLERGEN IMMUNOTHERAPY 1/PROFESSIONAL HOUSING CONSULTANT ANTIGEN 08/22/2020 12:00:00 AM EDT [facility] ([facility]) PROF [facility] ALLG IMMNTX X W/PRV ALLGIC XTRCS NJXS 2020 12:00:00 AM EDT [facility] ([facility]) PERIODIC PREVENTIVE MED EST PATIENT 40-64YRS 12:00:00 AM EDT [facility] ([facility] PROF [facility] ALLG IMMNTX X W/PRV ALLGIC XTRCS NJXS 2020 12:00:00 AM EDT [facility] ([facility]) PROF [facility] ALLG IMMNTX X W/PRV ALLGIC XTRCS NJXS 2020 12:00:00 AM EDT [facility] ([facility]) PROF [facility] ALLG IMMNTX X W/PRV ALLGIC XTRCS NJXS 2020 12:00:00 AM EDT [facility] ([facility]) PROF [facility] ALLG IMMNTX X W/PRV ALLGIC XTRCS NJXS 2020 12:00:00 AM EST [facility] ([facility]) PROF [facility] ALLG IMMNTX X W/PRV ALLGIC XTRCS NJXS 2020 12:00:00 AM EST [facility] ([facility]) PROF [facility] ALLG IMMNTX X W/PRV ALLGIC XTRCS NJXS 2020 12:00:00 AM EST [facility] ([facility]) PROF [facility] ALLG IMMNTX X W/PRV ALLGIC XTRCS NJXS 2019 12:00:00 AM EST [facility] ([facility]) PREPJ& ALLERGEN IMMUNOTHERAPY 1/PROFESSIONAL HOUSING CONSULTANT ANTIGEN 02/21/2020 12:00:00 AM EST [facility] ([facility]) PROF [facility] ALLG IMMNTX X W/PRV ALLGIC XTRCS NJXS 2019 12:00:00 AM EST [facility] ([facility]) PROF [facility] ALLG IMMNTX X W/PRV ALLGIC XTRCS NJXS 2019 12:00:00 AM EST [facility] ([facility]) PROF SVFLORA ALLG IMMNTX X W/PRV ALLGIC XTRCS NJXS 2019 12:00:00 AM EDT [facility] ([facility]) Results ID Date Data Source [id number] 07/21/2020 08:17:00 AM EDT [facility] ([facility] Name Value Range Interpretation Code Description Data Michelle rce(s) Supporting Document(s) Triglycerides Level 113 mg/dL [facility] ([facility] HDL Cholesterol 41 mg/dL [facility] ([facility] LDL Cholesterol 112 mg/dL [facility] ([facility] Cholesterol Level 176 mg/dL [facility] ([facility] Non-HDL-C 135 mg/dL [facility] ([facility] Cholesterol Risk Ratio 4.292 [facility] ([facility] ID Date Data Source [id number] 07/21/2020 08:17:00 AM EDT [facility] ([facility] Name Value Range Interpretation Code Description [facility] Supporting Document(s) Red Blood Count 4.61 10 4.30-6.10 [facility] ([facility] White Blood Count 5.5 10 4.0-10.0 [facility] ([facility] Hemoglobin 14.1 g/dL 13.5-17.5 [facility] ([facility] Mean Corpuscular Volume 94.8 fl 80.0-96.0 M [facility] ([facility] Hematocrit 43.7 % 42.0-52.0 [facility] ([facility] Mean Corpuscular Hemoglobin 30.6 pg 27.0-33.0 [facility] ([facility] Mean Corpuscular HGB Conc 32.3 g/dL 32.0-36.5 [facility] ([facility] Red Cell Distribution Width 13.3 % 11.5-14.5 [facility] ([facility] Lymph % 32.7 % 24.0-44.0 [facility] ([facility] Platelet Count, Automated 238 10 150-450 [facility] ([facility] Neutrophils % 54.0 % 36.0-66.0 [facility] ([facility] Eos % 2.9 % 0.0-3.0 [facility] ([facility] [place] % 9.5 % 2.0-8.0 [facility] ([facility] Baso % 0.7 % 0.0-1.0 [facility] ([facility] Nucleated Red Blood Cell % 0.0 % 0-0 [facility] ([facility] Immature Granulocyte % 0.2 % 0-3.0 [facility] ([facility] Lymph # 1.8 10 1.5-5.0 [facility] ([facility] Neutrophils # 3.0 10 1.5-8.5 [facility] ([facility] [place] # 0.5 10 0.0-0.8 [facility] ([facility] Baso # 0.0 10 0.0-0.2 [facility] ([facility] Eos # 0.2 10 0.0-0.5 [facility] ([facility] ID Date Data Source [id number] 07/21/2020 08:17:00 AM EDT [facility] ([facility] Name Value Range Interpretation Code Description Data Michelle rce(s) Supporting Document(s) Glucose, Fasting 101 mg/dL 70-100 [facility] ([facility] Blood Urea Nitrogen 9 mg/dL 7-18 [facility] ([facility] Creatinine For GFR 0.92 mg/dL 0.70-1.30 [facility] ([facility] Sodium Level 139 meq/L 136-145 [facility] ([facility] Glomerular Filtration Rate Laboratory test result [facility] ([facility] <content>Units are mL/min/1.73 m2</content>
<content></content>
<content>Chronic Kidney Disease Staging per NKF:</content>
<content></content>
<content>Stage I & II GFR >=60 Normal to Mildly Decreased</content>
<content>Stage III GFR 30-59 Moderately Decreased</content>
<content>Stage IV GFR 15-29 Severely Decreased</content>
<content>Stage V GFR <15 Very Little GFR Left</content>
<content>ESRD GFR <15 on ETHERNET NETWORK ARCHITECT</content>
<content></content> Chloride Level 106 meq/L 98-107 [facility] ([facility] Potassium Serum 4.6 meq/L 3.5-5.1 [facility] ([facility] Carbon Dioxide Level 29 meq/L 21-32 [facility] ([facility] Anion Gap 4 meq/L 8-16 [facility] ([facility] Calcium Level 9.2 mg/dL 8.5-10.1 [facility] ([facility] Alt/SGPT 20 U/L 12-78 [facility] ([facility] Alkaline Phosphatase 79 U/L 45-117 [facility] ([facility] Ast/Sgot 9 U/L 7-37 [facility] ([facility] Bilirubin,Total 0.5 mg/dL 0.2-1.0 [facility] ([facility] Albumin 3.8 GM/DL 3.2-5.2 [facility] ([facility] Total Protein 7.1 GM/DL 6.4-8.2 [facility] ([facility] Albumin/Globulin Ratio 1.2 [facility] ([facility] ID Date Data Source [id number] 05/27/2020 08:46:00 PM EST [facility] ([facility] Name Value Range Interpretation Code Description Data Michelle rce(s) Supporting Document(s) Laboratory test finding (navigational concept) 42.0 % 38.0-51.0 [facility] ([facility] Laboratory test finding (navigational concept) 139 meq/L 136-145 [facility] ([facility] Laboratory test finding (navigational concept) 103 mg/dL 70-105 [facility] ([facility] Laboratory test finding (navigational concept) 4.9 mg/dL 4.5-5.3 [facility] ([facility] Laboratory test finding (navigational concept) 103 meq/L 98-109 [facility] ([facility] Laboratory test finding (navigational concept) 4.3 meq/L 3.5-5.1 [facility] ([facility] Laboratory test finding (navigational concept) 11 mg/dL 8-26 [facility] ([facility] Laboratory test finding (navigational concept) 26.0 MM/L 23.0-27.0 [facility] ([facility] Laboratory test finding (navigational concept) 1.6 mg/dL 0.6-1.3 [facility] ([facility] ID Date Data Source [id number] 05/27/2020 08:33:00 PM EST [facility] ([facility] Name Value Range Interpretation Code Description Data Michelle rce(s) Supporting Document(s) Influenza A Amplification Laboratory test result [facility] ([facility] Negative results do not preclude influen za or RSV virus infection and should not be used as the sole basis for treatment or other patient management decisions. RSV Amplification Laboratory test result [facility] ([facility] Negative results do not preclude influen za or RSV virus infection and should not be used as the sole basis for treatment or other patient management decisions. Influenza B Amplification Laboratory test result [facility] ([facility] Negative results do not preclude influen za or RSV virus infection and should not be used as the sole basis for treatment or other patient management decisions. Laboratory test finding (navigational concept) Laboratory test result [facility] ([facility] A false negative result may occur if a s pecimen is improperly collected, transported or handled. False negative results may also occur if inadequate numbers of organisms are present in the specimen. As with any molecular test, mutations within the target regions of Xpert Xpress SARS-CoV-2 could affect primer and/or probe binding resulting in failure to detect the presence of virus. This test cannot rule out diseases caused by other bacterial or viral pathogens. DISCLAIMER: Testing was performed using the [employer] SARS-CoV-2 test. This test was developed and its performance characteristics determined by [employer]. This test has not been FDA cleared or approved. This test has been authorized by FDA under an Emergency Use Authorization (EUA). This test is only authorized for the duration of time the declaration that circumstances exist justifying the authorization of the emergency use of in vitro diagnostic tests for detection of SARS-CoV-2 virus and/or diagnosis of COVID-19 infection under section 564(b)(1) of the Act, 21 U.S.C. 360bbb-3(b)(1), unless the authorization is terminated or revoked sooner. ID Date Data Source [id number] 05/27/2020 08:33:00 PM EST [facility] ([facility] Name Value Range Interpretation Code Description Data Michelle rce(s) Supporting Document(s) Lipoprotein lipase [Enzymatic activity/volume] in Serum or Plasm a 47 U/L 73-393 [facility] ([facility] <content>note:<nlbl:demographic_changed> </content>
<content></content> ID Date Data Source [id number] 05/27/2020 08:33:00 PM EST [facility] ([facility] Name Value Range Interpretation Code Description Data Michelle rce(s) Supporting Document(s) Alt/SGPT 20 U/L 12-78 [facility] Ast/Sgot 14 U/L 7-37 [facility] Bilirubin,Total 0.7 mg/dL 0.2-1.0 [facility] ([facility] Alkaline Phosphatase 85 U/L 45-117 [facility] ([facility] Bilirubin,Direct 0.2 mg/dL 0.0-0.2 [facility] ([facility] Total Protein 6.8 GM/DL 6.4-8.2 [facility] ([facility] Albumin/Globulin Ratio 1.1 [facility] ([facility] Albumin 3.6 GM/DL 3.2-5.2 [facility] ID Date Data Source [id number] 05/27/2020 08:33:00 PM EST [facility] ([facility] Name Value Range Interpretation Code Description Data Michelle rce(s) Supporting Document(s) Appearance, Urine Laboratory test result [facility] ([facility] Color, Urine Laboratory test result [facility] ([facility] PH,Urine 5.0 units 5.0-9.0 [facility] Specific Badin Urine Auto 1.026 1.002-1.035 [facility] ([facility] Protein, Urine Auto Laboratory test result [facility] ([facility] Glucose, Urine (Ua) Auto Laboratory test result [facility] ([facility] Urobilinogen, Urine Auto 0.2 mg/dL 0.0-2.0 [facility] ([facility] Ketone, Urine Auto Laboratory test result [facility] ([facility] Bilirubin, Urine Auto Laboratory test result [facility] ([facility] Nitrite, Urine Auto Laboratory test result [facility] ([facility] Blood, Urine Blood Laboratory test result [facility] ([facility] Leukocyte Esterase, Urine Auto Laboratory test result [facility] ([facility] WBC, Urine Auto 2 /HPF 0-3 [facility] ([facility] RBC, Urine Auto 11 /HPF 0-3 [facility] ([facility] Squamous Epithelial Cell Ur AU 0 /HPF 0-6 [facility] ([facility] Bacteria, Urine Auto Laboratory test result [facility] ([facility] Hyaline Cast, Urine Auto 0 /LPF 0-1 [facility] ([facility] Mucus, Urine Laboratory test result [facility] ([facility] ID Date Data Source [id number] 05/27/2020 08:33:00 PM EST [facility] ([facility] Name Value Range Interpretation Code Description Data Michelle rce(s) Supporting Document(s) White Blood Count 10.5 10 4.0-10.0 [facility] ([facility] Red Blood Count 4.47 10 4.30-6.10 [facility] ([facility] Hemoglobin 13.9 g/dL 13.5-17.5 [facility] ([facility] Hematocrit 42.0 % 42.0-52.0 [facility] ([facility] Mean Corpuscular Hemoglobin 31.1 pg 27.0-33.0 [facility] ([facility] Mean Corpuscular Volume 94.0 fl 80.0-96.0 M [facility] ([facility] Red Cell Distribution Width 13.1 % 11.5-14.5 [facility] ([facility] Mean Corpuscular HGB Conc 33.1 g/dL 32.0-36.5 [facility] ([facility] Platelet Count, Automated 190 10 150-450 [facility] ([facility] Neutrophils % 84.3 % 36.0-66.0 [facility] ([facility] Lymph % 8.3 % 24.0-44.0 [facility] ([facility] [place] % 6.6 % 2.0-8.0 [facility] Baso % 0.2 % 0.0-1.0 [facility] Eos % 0.2 % 0.0-3.0 [facility] Immature Granulocyte % 0.4 % 0-3.0 [facility] ([facility] Nucleated Red Blood Cell % 0.0 % 0-0 [facility] ([facility] Neutrophils # 8.9 10 1.5-8.5 [facility] ([facility] Lymph # 0.9 10 1.5-5.0 [facility] [place] # 0.7 10 0.0-0.8 [facility] Baso # 0.0 10 0.0-0.2 [facility] Eos # 0.0 10 0.0-0.5 [facility] ID Date Data Source [id number] 05/27/2020 08:33:00 PM EST [facility] Name Value Range Interpretation Code Description Data Michelle rce(s) Supporting Document(s) SARS coronavirus 2 RNA [Presence] in Res piratory specimen by KYLEIGH with probe detection NEGATIVE [facility] This lab was ordered by [facility] a nd reported by [employer]. ID Date Data Source [id number] 05/26/2020 07:29:00 PM EST [facility] ([facility] Name Value Range Interpretation Code Description Data Michelle rce(s) Supporting Document(s) Laboratory test finding (navigational concept) 46.0 % 38.0-51.0 [facility] ([facility] Laboratory test finding (navigational concept) 137 meq/L 136-145 [facility] ([facility] Laboratory test finding (navigational concept) 103 mg/dL 70-105 [facility] ([facility] Laboratory test finding (navigational concept) 4.1 meq/L 3.5-5.1 [facility] ([facility] Laboratory test finding (navigational concept) 4.8 mg/dL 4.5-5.3 [facility] ([facility] Laboratory test finding (navigational concept) 101 meq/L 98-109 [facility] ([facility] Laboratory test finding (navigational concept) 26.0 MM/L 23.0-27.0 [facility] ([facility] Laboratory test finding (navigational concept) 1.4 mg/dL 0.6-1.3 [facility] ([facility] Laboratory test finding (navigational concept) 13 mg/dL 8-26 [facility] ([facility] ID Date Data Source [id number] 01/29/2020 08:28:00 AM EST [facility] ([facility] Name Value Range Interpretation Code Description Data Michelle rce(s) Supporting Document(s) Triglycerides Level 133 mg/dL [facility] ([facility] HDL Cholesterol 44 mg/dL [facility] Cholesterol Level 183 mg/dL [facility] ([facility] LDL Cholesterol 112 mg/dL [facility] Cholesterol Risk Ratio 4.159 [facility] ([facility] Non-HDL-C 139 mg/dL [facility] Procedure Social History Code Duration Value Status Description Data Source(s ) Smoking 09/24/2020 12:00:00 AM EDT - 03/21/1999 12:00:00 AM EST Patient is a former smoker completed Patient is a former smoker [facility] ([facility]) Smoking 08/05/2020 12:00:00 AM EDT Patient is a former smoker completed Patient is a former smoker [facility] ([facility] Smoking 06/09/2020 12:00:00 AM EDT Never Smoker completed Never S marcus eCW1 ([facility]) Smoking 06/09/2020 12:00:00 AM EDT Never Smoker completed Never S marcus eCW1 ([facility]) Vital Signs ID Date Data Source [id number] Name Value Range Interpretation Code Description Data Source(s) Systolic blood pressure 151 mm[Hg] 151 mm[Hg] M EDENT ([facility]) Diastolic blood pressure 84 mm[Hg] 84 mm[Hg] [facility] ([facility]) Heart rate 59 /min 59 /min [facility] ([facility]) Body temperature 98.3 [degF] 98.3 [degF] [facility] ([facility]) Body height 72 [in_i] 72 [in_i] [facility] ([facility]) 6'0" Body weight 217.25 [lb_av] 217.25 [lb_av] MED[facility] T ([facility]) Body mass index (BMI) [Ratio] 29.5 kg/m2 29.5 k g/m2 [facility] ([facility]) [place] body weight 178 [lb_av] 178 [lb_av] [facility] T ([facility]) Body weight 98.545 kg 98.545 kg [facility] ([facility]) Body surface area Derived from formula 2.21 m2 2.21 m2 [facility] ([facility]) Systolic blood pressure 117 mm[Hg] 117 mm[Hg] M EDENT ([facility]) Diastolic blood pressure 70 mm[Hg] 70 mm[Hg] [facility] ([facility]) Oxygen saturation in Arterial blood by Pulse oximetry 98 % 98 % [facility] ([facility]) Heart rate 54 /min 54 /min [facility] ([facility]) [place] body weight 172 [lb_av] 172 [lb_av] [facility] T ([facility] Body temperature 96.9 [degF] 96.9 [degF] [facility] ([facility] Body height 71.0 [in_i] 71.0 [in_i] [facility] ([facility] 5'11" Heart rate 63 /min 63 /min [facility] ([facility] Respiratory rate 16 /min 16 /min [facility] ( [facility]) Systolic blood pressure 109 mm[Hg] 109 mm[Hg] M EDENT ([facility]) Diastolic blood pressure 70 mm[Hg] 70 mm[Hg] [facility] ([facility]) Body mass index (BMI) [Ratio] 29.6 kg/m2 29.6 k g/m2 [facility] ([facility]) Body weight 218.25 [lb_av] 218.25 [lb_av] [facility] T ([facility]) Body height 72 [in_i] 72 [in_i] [facility] ([facility] 6'0" Systolic blood pressure 106 mm[Hg] 106 mm[Hg] M [facility] ([facility] Diastolic blood pressure 76 mm[Hg] 76 mm[Hg] [facility] ([facility] Body temperature 96.8 [degF] 96.8 [degF] [facility] ([facility] Respiratory rate 17 /min 17 /min [facility] ( [facility] Body weight 227.38 [lb_av] 227.38 [lb_av] [facility] T ([facility] Oxygen saturation in Arterial blood by Pulse oximetry 99 % 99 % [facility] ([facility] [place] body weight 172 [lb_av] 172 [lb_av] [facility] T ([facility] Body mass index (BMI) [Ratio] 31.7 kg/m2 31.7 k g/m2 [facility] ([facility] Heart rate 60 /min 60 /min [facility] ([facility] Body height 71.0 [in_i] 71.0 [in_i] [facility] ([facility] 5'11" Body weight 237 [lb_av] 237 [lb_av] eCW1 ([facility]) Body height [in_i] eCW1 ([facility]) Body mass index (BMI) [Ratio] 32.14 kg/m2 32.14 kg/m2 eCW1 ([facility]) Heart rate 60 /min 60 /min eCW1 ([facility]) Respiratory rate 17 /min 17 /min eCW1 ([facility]) Body temperature 96.3 [degF] 96.3 [degF] eCW1 ( [facility]) Systolic blood pressure 126 mm[Hg] 126 mm[Hg] e CW1 ([facility]) Diastolic blood pressure 78 mm[Hg] 78 mm[Hg] eCW1 ([facility]) Systolic blood pressure 119 mm[Hg] 119 mm[Hg] M [facility] ([facility] Diastolic blood pressure 59 mm[Hg] 59 mm[Hg] [facility] ([facility] Heart rate 88 /min 88 /min [facility] ([facility] Body temperature 97.1 [degF] 97.1 [degF] [facility] ([facility] Oxygen saturation in Arterial blood by Pulse oximetry 97 % 97 % [facility] ([facility] [place] body weight 172 [lb_av] 172 [lb_av] [facility] T ([facility] Body mass index (BMI) [Ratio] 34.4 kg/m2 34.4 k g/m2 [facility] ([facility] Body weight 246.38 [lb_av] 246.38 [lb_av] [facility] T ([facility] Respiratory rate 18 /min 18 /min [facility] ( [facility] Body height 71.0 [in_i] 71.0 [in_i] [facility] ([facility] 5'11" Respiratory rate 17 /min 17 /min [facility] ( [facility] Body weight 258.50 [lb_av] 258.50 [lb_av] [facility] T ([facility] Oxygen saturation in Arterial blood by Pulse oximetry 98 % 98 % [facility] ([facility] Systolic blood pressure 118 mm[Hg] 118 mm[Hg] M [facility] ([facility] Diastolic blood pressure 63 mm[Hg] 63 mm[Hg] [facility] ([facility] Heart rate 56 /min 56 /min [facility] ([facility] Body temperature 98.0 [degF] 98.0 [degF] [facility] ([facility] Body height 71.0 [in_i] 71.0 [in_i] [facility] ([facility] 5'11" [place] body weight 172 [lb_av] 172 [lb_av] [facility] T ([facility] Body mass index (BMI) [Ratio] 36.0 kg/m2 36.0 k g/m2 [facility] ([facility] Body temperature 97.7 [degF] 97.7 [degF] [facility] ([facility]
--- OUTSIDE RECORDS SUMMARY | 2021-02-18 09:25 | CCD | Continuity of Care Document ---
Author Author Geoff RAYMUNDO-Rebekah Organization Unknown Address [address], [address] [place] [address] Phone [phone] Care Team Providers Care Carrier Loader Name Role Phone Leena Villatoro PA-C AUTM [phone] Problems Description No Information Available Social History Type Date Description Comments Sex Unknown ETOH Use Social Drinker Tobacco Use Start: Unknown End: Unknown Patient is a former smoker Quit 1980 Sun Exposure moderate amount of sun exposure Sun Exposure Has experienced blistering from sunburns Sun Exposure Uses > 30 SPF Sun Exposure Tanning bed - Has used in past. No longer using. Allergies and adverse reactions Active Allergies Criticality Reaction | Severity Comments Date Niacin Unable to assess criticality 10/24/2014 Medications Active Medications SIG Qnty Indications Ordering Provide r Date Omeprazole 20mg Capsules DR Unknown Loratadine 10mg Tablets Unknown Fluticasone Propionate 50mcg/Act Suspension Unknown Montelukast Sodium 10mg Tablets Unknown Vitamin D3 5000Unit [place] Unknown Allergy Shots Unknown Immunizations Description No Information Available Vital Signs Date Vital Result Comment 01/26/2021 7:48am BP Systolic 117 mmHg BP Diastolic 70 mmHg O2 % BldC Oximetry 98 % Heart Rate 54 /min 09/04/2018 7:51am BP Systolic 120 mmHg BP Diastolic 68 mmHg Results Description No Information Available Procedures Date Code Description Status 01/26/2021 89299 Office/Outpatient Established Mo d MDM 30-39 Min Completed Medical Devices Description No Information Available Encounters Type Date Location Provider Dx Diagnosis Office Visit 01/26/2021 8:00a Main Office CHINTAN Garcia D22.5 Melanocytic nevi of trunk L82.1 Other seborrheic keratosis L81.4 Other melanin hyperpigmentat ion L81.6 Other disorders of diminishe d melanin formation L81.2 Freckles L85.9 Epidermal thickening, unspec ified D18.01 Hemangioma of skin and subcu taneous tissue Z12.83 Encounter for screening for malignant neoplasm of skin Assessments Date Code Description Provider 01/26/2021 D22.5 Melanocytic nevi of trunk Luciana ceasarCHINTAN Palm 01/26/2021 L82.1 Other seborrheic keratosis Lisbet CHINTAN Ball 01/26/2021 L81.4 Other melanin hyperpigmentation CHINTAN Garcia 01/26/2021 L81.6 Other disorders of diminished me lanin formation CHINTAN Garcia 01/26/2021 L81.[address] 01/26/2021 L85.9 Epidermal thickening, unspecifie d CHINTAN Garcia 01/26/2021 D18.01 Hemangioma of skin and subcutane ous tissue CHINTAN Garcia 01/26/2021 Z12.83 Encounter for screening for david gnant neoplasm of skin CHINTAN Garcia Plan of Treatment Future Appointment(s):* 02/01/2022 8:00 am - CHINTAN Garcia at Main Office 01/26/2021 - CHINTAN Garcia* D22.5 Melanocytic nevi of trunk* Comments:* Nevi on trunk appear healthy. Monitor for changes. Sun protection and sunscreen use discussed. Discussed if any moles change in shape or color, itch, bleed or burn to contact the office for evaluation sooner than their interval appointment. * L82.1 Other seborrheic keratosis* Comments:* Reassurance Discussed seborrheic keratoses are benign warty growths on the skin that appear with age and that they are not contagious The precise cause of Carlos Alberto K's is unknown although can run in families so genes may play a role Discussed if ever becomes irritated to call for a removal appointment * L81.4 Other melanin hyperpigmentation* Comments:* Solar lentigines - ReassuranceDiscussed that solar lentignes appear from the sun that was received years agoSunscreen use and sun protection discussed. * L81.6 Other disorders of diminished melanin formation* Comments:* Sunscreen use and sun protection discussed. * L81.2 Freckles* Comments:* Sunscreen use and sun protection discussed. * L85.9 Epidermal thickening, unspecified* Comments:* ReassuranceDiscussed if ever becomes irritated or catches on clothing we can remove in the future * D18.01 Hemangioma of skin and subcutaneous tissue* Comments:* Reassurance. * Z12.83 Encounter for screening for malignant neoplasm of skin* Comments:* See above * Follow up:* Yearly/PRN - [facility] Functional Status Description No Information Available Mental Status Description No Information Available Referrals Description No Information Available"
--- OUTSIDE RECORDS SUMMARY | 2021-02-18 09:25 | CCD | Continuity of Care Document ---
Author Author Geoff NEELY M.D. Organization Unknown Address [address], [place] [address] Phone [phone] Care Team Providers Care Clinical Laboratory Aides Teacher Name Role Phone Leena Villatoro Unavailable Problems [...] Sanford Neely M.D. 05/23/2019 Azelastine HCL (Nasal) 137mcg/[place] Solution 2 sprays each nostril every day every morning for 90 days 90ml J30.89 Sanford Neely M.D. 04/02/2019 Fluticasone Propionate Nasal [place] [facility]er [facility] Relief 24- Hour 50mcg/Act Suspension [...] Allergy Injection 2 Or More Injection Sanford eNely M.D. 12/03/2020 Allergy Injection 2 Or More [...] 09/04/2019 Allergy Injection 2 Or More Injection Marc Gunn.Elias 08/15/2019 Allergy Injection 2 Or More Injection Sanford Neely M.D. 07/25/2019 Allergy Injection 2 Or More Injection Sanford Neely M.D. 07/04/2019 Allergy Injection 2 Or More Injection Marc Gunn.Elias 06/13/2019 Allergy Injection 2 Or More Injection Sanford Neely M.D. 05/23/2019 Allergy Injection 2 Or More Injection Marc Gunn.DWalter 05/01/2019 Allergy Injection 2 Or More Injection Sanford Neely M.D. 04/11/2019 Allergy Injection 2 Or More Injection Sanford Neely M.D. 03/19/2019 Allergy Injection 2 Or More Injection Marc Gunn.DWalter 02/26/2019 Allergy Injection 2 Or More Injection Marc Gunn.DWalter 02/06/2019 Allergy Injection 2 Or More Injection Sanford Neely M.D. 01/17/2019 Allergy Injection 2 Or More Injection Marc Gunn.DWalter 01/05/2019 Allergy Injection 2 Or More Injection Marc Gunn.DWalter 12/28/2018 Allergy Injection 2 Or More Injection CHINTAN Mckeon 12/19/2018 Allergy Injection 2 Or More Injection Sanford Neely M.D. 12/19/2018 Allergy Injection 2 Or More Injection CHINTAN Mckeon 12/12/2018 Allergy Injection 2 Or More Injection Sanford Neely M.D. 12/12/2018 Allergy Injection 2 Or More Injection Sanford Neely M.D. 12/05/2018 Allergy Injection 2 Or More Injection Sanford Neley M.D. 11/28/2018 Allergy Injection 2 Or More [...] Information Available Procedures Date Code Description Status 01/12/2021 62250 Allergy Injection 2 Or More Comp leted 01/09/2021 72542 Allergy Antigens Single Or Multi ple Completed 12/22/2020 56954 Allergy Injection 2 Or More Comp leted 12/03/2020 03050 Allergy Injection 2 Or More Comp leted 11/10/2020 27067 Allergy Injection 2 Or More Comp leted 10/13/2020 50345 Allergy Injection 2 Or More Comp leted 09/24/2020 34407 Office/Outpatient Established Lo w MDM 20-29 Min Completed 09/24/2020 71323 Allergy Injection 2 Or More Comp leted 09/02/2020 69748 Allergy Injection 2 Or More Comp leted 08/22/2020 45922 Allergy Antigens Single Or Multi ple Completed 08/13/2020 12810 Allergy Injection 2 Or More Comp leted 07/21/2020 88076 Allergy Injection 2 Or More Comp leted Medical Devices Description No Information Available Encounters Description No Information Available Assessments Date Code Description Provider 01/12/2021 J30.1 Allergic rhinitis due to pollen Sanford Neely M.D. 01/12/2021 J30.89 Other allergic rhinitis Sanford Neely M.D. Plan of Treatment Future Appointment(s):* 02/02/2021 11:00 am - Allergy Injection at Main Office [...]
--- OUTSIDE RECORDS SUMMARY | 2021-02-18 09:25 | CCD | Continuity of Care Document ---
Author Author Geoff Rangel Organization Unknown Address [address], [address], [place] [address] Phone [phone] Care Team Providers Care Hoof And Shoe Inspector Name Role Phone Leena Villatoro Sukhjinder LOTT Unavailable Problems Active Problems Provider Date Allergic rhinitis due to pollen Onset: 0 04/13/2018 Note: On IT. 4+ reaction to grass pollen with 3+ reaction to ragweed and willow tree pollen on scratch test. 4+ reaction to weed pollen on intradermal test Completed 2018. Allergic rhinitis due to house dust mite Sanford Seo M.D. Onset: 09/25/2019 Note: On IT. 3+ [...] by oral route once daily 90tabs Sanford Seo M.D. 05/23/2019 Azelastine HCL (Nasal) 137mcg/[place] Solution 2 sprays each nostril every day every morning for 90 days 90ml J30.89 Sanford Seo M.D. 04/02/2019 Fluticasone Propionate Nasal [place] Aller gy Relief 24- Hour 50mcg/Act Suspension inhale 2 puffs by nasal route once a day (in the evening) Unknown 09/26/2018 Montelukast Sodium 10mg Tablets take 1 tablet (10 mg) by oral route once daily in the evening 90tabs J30.8 9 Sanford Seo M.D. 09/26/2018 Omeprazole Magnesium 20.6(20Base) mg Capsules DR take 1 capsule (20 mg) by oral route once daily before a meal Unknown Vitamin D3 50mcg (2000 Ut) Capsules Unknown Medications Administered in Office Medication SIG Qnty Indications Ordering Provider Date Allergy Injection 2 Or More Injection Sanford Seo M.D. 02/09/2021 Allergy Injection 2 Or More Injection Sanford Seo M.D. 01/12/2021 Allergy Injection 2 Or More Injection Sanford Seo M.D. 12/22/2020 Allergy Injection 2 Or More Injection Sanford Seo M.D. 12/03/2020 Allergy Injection 2 Or More Injection Sanford Seo M.D. 11/10/2020 Allergy Injection 2 Or More Injection Sanford Seo M.D. 10/13/2020 Allergy Injection 2 Or More Injection Sanford Seo M.D. 09/24/2020 Allergy Injection 2 Or More Injection Sanford Seo M.D. 09/02/2020 Allergy Injection 2 Or More Injection Sanford Seo M.D. 08/13/2020 Allergy Injection 2 Or More Injection Sanford Seo M.D. 07/21/2020 Allergy Injection 2 Or More Injection Sanford Seo M.D. 06/30/2020 Allergy Injection 2 Or More Injection Sanford Seo M.D. 06/09/2020 Allergy Injection 2 Or More Injection Sanford Seo M.D. 05/12/2020 Allergy Injection 2 Or More Injection Sanford Seo M.D. 04/21/2020 Allergy Injection 2 Or More Injection Sanford Seo M.D. 03/31/2020 Allergy Injection 2 Or More Injection Sanford Seo M.D. 03/11/2020 Allergy Injection 2 Or More Injection Sanford Seo M.D. 02/19/2020 Allergy Injection 2 Or More Injection Sanford Seo M.D. 01/29/2020 Allergy Injection 2 Or More Injection Sanford Seo M.D. 01/10/2020 Allergy Injection 2 Or More Injection ANA LAURA Fry 12/17/2019 Allergy Injection 2 Or More Injection Sanford Seo M.D. 12/17/2019 Allergy Injection 2 Or More Injection Sanford Seo M.D. 11/28/2019 Allergy Injection 2 Or More Injection SanfordNicola KnightDWalter 11/05/2019 Allergy Injection 2 Or More Injection Sanfordtanner Seo M.D. 10/16/2019 Allergy Injection 2 Or More Injection Sanford Seo M.D. 09/26/2019 Allergy Injection 2 Or More Injection Sanford Seo M.D. 09/04/2019 Allergy Injection 2 Or More Injection Sanford Seo M.D. 08/15/2019 Allergy Injection 2 Or More Injection Sanford Seo M.D. 07/25/2019 Allergy Injection 2 Or More Injection Sanfordtanner Seo M.D. 07/04/2019 Allergy Injection 2 Or More Injection Sanfordtanner Seo M.D. 06/13/2019 Allergy Injection 2 Or More Injection Sanford Seo M.D. 05/23/2019 Allergy Injection 2 Or More Injection Sanford Seo M.D. 05/01/2019 Allergy Injection 2 Or More Injection Sanford Seo M.D. 04/11/2019 Allergy Injection 2 Or More Injection SanfordNicola EstevezDWalter 03/19/2019 Allergy Injection 2 Or More Injection Marc Gunn.DWalter 02/26/2019 Allergy Injection 2 Or More Injection SanfordMarc Knight.DWalter 02/06/2019 Allergy Injection 2 Or More Injection SanfordNicola KnightDWalter 01/17/2019 Allergy Injection 2 Or More Injection SanfordNicola EstevezDWalter 01/05/2019 Allergy Injection 2 Or More Injection Sanford Seo M.D. 12/28/2018 Allergy Injection 2 Or More Injection CHINTAN Mckeon 12/19/2018 Allergy Injection 2 Or More Injection Sanford Seo M.D. 12/19/2018 Allergy Injection 2 Or More Injection CHINTAN Mckeon 12/12/2018 Allergy Injection 2 Or More Injection Sanford Seo M.D. 12/12/2018 Allergy Injection 2 Or More Injection Sanford Seo M.D. 12/05/2018 Allergy Injection 2 Or More Injection Sanford Seo M.D. 11/28/2018 Allergy Injection 2 Or More Injection Sanford Seo M.D. 11/22/2018 Allergy Injection 2 Or More Injection Sanford Seo M.D. 11/16/2018 Immunizations Description No Information Available [...] Available Procedures Date Code Description Status 02/09/2021 22816 Allergy Injection 2 Or More Comp leted 01/12/2021 61308 Allergy Injection 2 Or More Comp leted 01/09/2021 69872 Allergy Antigens Single Or Multi ple Completed 12/22/2020 44714 Allergy Injection 2 Or More Comp leted 12/03/2020 93170 Allergy Injection 2 Or More Comp leted 11/10/2020 65179 Allergy Injection 2 Or More Comp leted 10/13/2020 43897 Allergy Injection 2 Or More Comp leted 09/24/2020 98733 Office/Outpatient Established Lo w MDM 20-29 Min Completed 09/24/2020 77630 Allergy Injection 2 Or More Comp leted 09/02/2020 84207 Allergy Injection 2 Or More Comp leted 08/22/2020 68763 Allergy Antigens Single Or Multi ple Completed 08/13/2020 10969 Allergy Injection 2 Or More Comp leted Medical Devices Description No Information Available Encounters Description No Information Available Assessments Date Code Description Provider 02/09/2021 J30.1 Allergic rhinitis due to pollen Sanford Seo M.D. 02/09/2021 J30.89 Other allergic rhinitis Sanford Seo M.D. Plan of Treatment Future Appointment(s):* 03/02/2021 10:00 am - Allergy Injection at Main Office * 09/23/2021 8:45 am - Sanford Seo M.D. at Main Office 09/24/2020 - Sanford Seo M.D.* J30.89 Allergic rhinitis due to dust [...]
--- OUTSIDE RECORDS SUMMARY | 2021-02-18 09:25 | CCD | Continuity of Care Document ---
Author Author Geoff NEELY M.D. Organization Unknown Address [address], [address], [place] [address] Phone [phone] Care Team Providers Care Milling Supervisor Name Role Phone Leena Villatoro Unavailable Problems [...] Sanford Neely M.D. 05/23/2019 Azelastine HCL (Nasal) 137mcg/[place] Solution 2 sprays each nostril every day every morning for 90 days 90ml J30.89 Sanford Neely M.D. 04/02/2019 Fluticasone Propionate Nasal [place] Aller gy Relief 24- Hour 50mcg/Act Suspension [...] 12/17/2019 Allergy Injection 2 Or More Injection Snaford Neely M.D. 11/28/2019 Allergy Injection 2 Or [...] 02/26/2019 Allergy Injection 2 Or More Injection Sanford Neely M.D. 02/06/2019 Allergy Injection 2 Or More Injection Sanford Neely M.D. 01/17/2019 Allergy Injection 2 Or More Injection Sanford Neely M.D. 01/05/2019 Allergy Injection 2 Or More Injection [...] Information Available Procedures Date Code Description Status 12/22/2020 69792 Allergy Injection 2 Or More Comp leted 12/03/2020 66125 Allergy Injection 2 Or More Comp leted 11/10/2020 26416 Allergy Injection 2 Or More Comp leted 10/13/2020 14200 Allergy Injection 2 Or More Comp leted 09/24/2020 57560 Office/Outpatient Established Lo w MDM 20-29 Min Completed 09/24/2020 41717 Allergy Injection 2 Or More Comp leted 09/02/2020 54198 Allergy Injection 2 Or More Comp leted 08/22/2020 56378 Allergy Antigens Single Or Multi ple Completed 08/13/2020 18776 Allergy Injection 2 Or More Comp leted 07/21/2020 86805 Allergy Injection 2 Or More Comp leted 06/30/2020 40613 Allergy Injection 2 Or More Comp leted Medical Devices Description No Information Available Encounters Description No Information Available Assessments Date Code Description Provider 12/22/2020 J30.1 Allergic rhinitis due to pollen Sanford Neely M.D. 12/22/2020 J30.89 Other allergic rhinitis Sanford Neely M.D. Plan of Treatment Future Appointment(s):* 01/12/2021 8:50 am - Allergy Injection at Main Office [...]
--- OUTSIDE RECORDS SUMMARY | 2021-02-18 09:25 | CCD | Continuity of Care Document ---
Author Author Geoff ZARAGOZA M.D. Organization Unknown Address [address] [place] [address] Phone [phone] Care Team Providers Care Senior Administrative Associate Name Role Phone [facility] AUTM [phone] [facility] - Urology AUTM [phone] Problems Active Problems Provider Date Kidney stone Jackie Zaragoza M.D. Onset: 05/28/19 21 Social History Type Date Description Comments Sex Unknown Tobacco Use Start: Unknown End: Unknown Former Smoke less Tobacco User, Used 4 Times Daily ETOH Use Occasionally consumes alcohol Tobacco Use Start: Unknown End: Unknown Patient is a former smoker quit 03/1999, one pack per week smoker, also used chewing tobacco for 20 years. Recreational Drug Use Denies Drug Use Smoking Status Reviewed: 08/05/20 Patient is a former smoker qu it 03/1999, one pack per week smoker, also used chewing tobacco for 20 years. Exercise Type/Frequency Does not exercise Tattoo/Piercing Tattoo 3 Sun Exposure Uses sunscreen Seat Belt/Car Seat Always uses seat belt Smoke Alarms Yes Smoke Alarms Carbon Monoxide Detector: Yes Allergies and adverse reactions Active Allergies Criticality Reaction | Severity Comments Date Niacin Unable to assess criticality flushing, passed out | Se bee 06/06/2014 seasonal Unable to assess criticality 06/06/2014 Medications Active Medications SIG Qnty Indications Ordering Provide r Date Proair HFA 108(90Base) mcg/Act Aer osol 2 puffs every 4 hours as needed for cough 25.5gm J20.9 Jackie Zaragoza M.D. 12/21/2018 Montelukast Sodium 10mg Tablets Take 1 Tablet Daily as Needed 90tabs Michael Zaragozaen A., M.D. 07/20/2018 Fluticasone Propionate 50mcg/Act Suspension Use 2 Sprays In Each Nostril Daily 48units Jackie Flores ms, M.D. 01/17/2015 Loratadine 10mg Tablets Take 1 Tablet Daily Jackie Pham M.D. 000 Vitamin D 1000Unit Tablets 1 by mouth every day Unknown Omeprazole 20mg Capsules DR take 1 capsule daily Jackie Turner M.D. 000 Azelastine HCL (Nasal) 0.15% Solut ion 1-2 sprays in each nostril twice a day as needed Unk nown Allergy Shots q3 weeks Unknown Immunizations CPT Code Status Date Vaccine Lot # [id number] Given 01/16/2021 Influenza Virus Vaccine, Cain drivalent,multidose vial [id number] 08747 Given 07/08/2020 Moderna Sars-(Co vid-19) vaccine, mRNA, LNP-S, PF, 100 mcg/ 0.5 mL 10971 Given 06/06/2020 Moderna Sars-(Co vid-19) vaccine, mRNA, LNP-S, PF, 100 mcg/ 0.5 mL 36816 Given 02/06/2020 Pneumococcal Vaccine [id number] 78597 Given 01/17/2020 Influenza Virus Vaccine, Cain drivalent,multidose vial [id number] 29289 Given 03/02/2019 Influenza Virus Vaccine, Cain drivalent,multidose vial [id number] 11122 Given 01/11/2017 Influenza Vaccination [id number] 24439 Given 12/09/2015 Influenza Vaccination [id number] Vital Signs Date Vital Result Comment 01/16/2021 7:29am Body Temperature 96.9 F Height 71.0 inches 5'11" Peak Expiratory Flow Rate 535 Estimated Peak Flow Rate [place] Body Weight 172 lb 08/05/2020 7:05am BP Systolic 106 mmHg BP Diastolic 76 mmHg Heart Rate 60 /min Body Temperature 96.8 F Respiratory Rate 17 /min Height 71.0 inches 5'11" Weight 227.38 lb O2 % BldC Oximetry 99 % Peak Expiratory Flow Rate 535 Estimated Peak Flow Rate [place] Body Weight 172 lb BMI (Body Mass Index) 31.7 kg/m2 Results Test Acquired Date Facility Test Result H/L Range Note Comprehensive Metabolic Profil 07/21/2020 [facility] [phone] Glucose, Fasting 101 mg/dL High 70-100 Blood Urea Nitrogen 9 mg/dL Normal 7-18 Creatinine For GFR 0.92 mg/dL Normal 0.70-1.30 Glomerular Filtration Rate > 60.0 Normal >56 1 Sodium Level 139 mEq/L Normal 136-145 Potassium Serum 4.6 mEq/L Normal 3.5-5.1 Chloride Level 106 mEq/L Normal 98-107 Carbon Dioxide Level 29 mEq/L Normal 21-32 Anion Gap 4 mEq/L Low 8-16 Calcium Level 9.2 mg/dL Normal 8.5-10.1 Ast/Sgot 9 U/L Normal 7-37 Alt/SGPT 20 U/L Normal 12-78 Alkaline Phosphatase 79 U/L Normal 45-117 Bilirubin,Total 0.5 mg/dL Normal 0.2-1.0 Total Protein 7.1 GM/DL Normal 6.4-8.2 Albumin 3.8 GM/DL Normal 3.2-5.2 Albumin/Globulin Ratio 1.2 Normal CBC With Differential 07/21/2020 [facility] [phone] White Blood Count 5.5 10 Normal 4.0-10.0 Red Blood Count 4.61 10 Normal 4.30-6.10 Hemoglobin 14.1 g/dL Normal 13.5-17.5 Hematocrit 43.7 % Normal 42.0-52.0 Mean Corpuscular Volume 94.8 fl Normal 80.0-96.0 Mean Corpuscular Hemoglobin 30.6 pg Normal 27.0-33.0 Mean Corpuscular HGB Conc 32.3 g/dL Normal 32.0-36.5 Red Cell Distribution Width 13.3 % Normal 11.5-14.5 Platelet Count, Automated 238 10 Normal 150-450 Neutrophils % 54.0 % Normal 36.0-66.0 Lymph % 32.7 % Normal 24.0-44.0 Forrest % 9.5 % High 2.0-8.0 Eos % 2.9 % Normal 0.0-3.0 Baso % 0.7 % Normal 0.0-1.0 Immature Granulocyte % 0.2 % Normal 0-3.0 Nucleated Red Blood Cell % 0.0 % Normal 0-0 Neutrophils # 3.0 10 Normal 1.5-8.5 Lymph # 1.8 10 Normal 1.5-5.0 Forrest # 0.5 10 Normal 0.0-0.8 Eos # 0.2 10 Normal 0.0-0.5 Baso # 0.0 10 Normal 0.0-0.2 Lipid Panel 07/21/2020 [facility] nter [phone] Triglycerides Level 113 mg/dL Normal <150 Cholesterol Level 176 mg/dL Normal <200 HDL Cholesterol 41 mg/dL Normal >40 LDL Cholesterol 112 mg/dL High <100 Non-HDL-C 135 mg/dL Normal Cholesterol Risk Ratio 4.292 Normal <5 1 Units are mL/min/1.73 m2 Chronic Kidney Disease Staging per NKF: Stage I & II GFR >=60 Normal to Mildly Decreased Stage III GFR 30-59 Moderately Decreased Stage IV GFR 15-29 Severely Decreased Stage V GFR <15 Very Little GFR Left ESRD GFR <15 on SALT WASHER [employer]VE[employer]ING STATION Procedures Date Code Description Status 08/05/2020 79493 Preventive Medicine 40/64 Years, Est. Completed Medical Devices Description No Information Available Encounters Type Date Location Provider Dx Diagnosis Office Visit 08/05/2020 7:15a Main Office Jackie Zaragoza M.D. Z 00.00 Encntr for general adult medical exam w/o abnormal findings M54.5 Low back pain N20.0 Calculus of kidney Assessments Date Code Description Provider 08/05/2020 Z00.00 Encounter for general adult medi agnes examination without abno Jackie Zaragoza M.D. 08/05/2020 M54.5 Low back pain Jackie Zaragoza M.D. 08/05/2020 N20.0 Calculus of kidney Michael Zaragoza M.D. Plan of Treatment Future Appointment(s):* 08/06/2021 7:15 am - Jackie Zaragoza M.D. at Main Office Functional Status Functional Condition Comment Date Status Glasses Active Independent with all ADL's Activ e Dental Device for John Active Independent with all IADL's Acti ve Mental Status Mental Condition Comment Date Status None Active Referrals Description No Information Available
--- OUTSIDE RECORDS SUMMARY | 2021-02-18 09:25 | CCD | Continuity of Care Document ---
Author Author Geoff ZARAGOZA M.D. Organization Unknown Address [address] [place] [address] Phone [phone] Care Team Providers Care Geology Instructor Name Role Phone [facility] AUTM [phone] [facility] - Urology AUTM [facility] - Surgery AUTM [phone] Problems Active Problems Provider Date Kidney stone [...] Tablets Take 1 Tablet Daily as Needed 90taJackie Martin M.D. 07/20/2018 Fluticasone Propionate 50mcg/Act Suspension Use 2 Sprays In Each Nostril Daily 48units Williamsyessenia Jackie parks M.D. 01/17/2015 Loratadine 10mg Tablets Take 1 Tablet Daily 90taJackie Martin M.D. 000 Vitamin D 1000Unit Tablets 1 by mouth every day Unknown Omeprazole 20mg Capsules DR take 1 capsule daily 90caps Jackie Zaragoza M.D. 0 000 Azelastine HCL (Nasal) 0.15% Solut ion 1-2 sprays in each nostril twice a day as needed Unk nown Allergy Shots q3 weeks Unknown Immunizations CPT Code Status Date Vaccine Lot # [id number] Given 01/16/2021 Influenza Virus Vaccine, Cain drivalent,multidose vial [id number] 17729 Given 07/08/2020 Moderna Sars-(Co vid-19) vaccine, mRNA, LNP-S, PF, 100 mcg/ 0.5 mL 61087 Given 06/06/2020 Moderna Sars-(Co vid-19) vaccine, mRNA, LNP-S, PF, 100 mcg/ 0.5 mL 41530 Given 02/06/2020 Pneumococcal Vaccine [id number] 45403 Given 01/17/2020 Influenza Virus Vaccine, Cain drivalent,multidose vial [id number] 75452 Given 03/02/2019 Influenza Virus Vaccine, Cain drivalent,multidose vial [id number] 49467 Given 01/11/2017 Influenza Vaccination [id number] 88704 Given 12/09/2015 Influenza Vaccination [id number] Vital Signs Date Vital Result Comment 01/16/2021 7:29am Body Temperature 96.9 F Height 71.0 inches 5'11" Peak Expiratory Flow Rate 535 Estimated Peak Flow Rate [place] Body Weight 172 lb 08/05/2020 7:05am BP Systolic 106 mmHg BP Diastolic 76 mmHg Heart Rate 60 /min Body Temperature 96.8 F Respiratory Rate 17 /min Height 71.0 inches 5'11" Weight 227.38 lb O2 % BldC Oximetry 99 % Peak Expiratory Flow Rate 535 Estimated Peak Flow Rate [place] Body Weight 172 lb BMI (Body Mass Index) 31.7 kg/m2 Results Test Acquired Date Facility Test Result H/L Range Note Comprehensive Metabolic Profil 07/21/2020 [facility] [phone] Glucose, Fasting 101 mg/dL High 70-100 Blood [...] Ratio 1.2 Normal CBC With Differential 07/21/2020 [facility] [phone] White Blood Count 5.5 10 Normal 4.0-10.0 [...] 36.0-66.0 Lymph % 32.7 % Normal 24.0-44.0 Humphreys % 9.5 % High 2.0-8.0 Eos % 2.9 % Normal 0.0-3.0 Baso % 0.7 % Normal 0.0-1.0 Immature Granulocyte % 0.2 % Normal 0-3.0 Nucleated Red Blood Cell % 0.0 % Normal 0-0 Neutrophils # 3.0 10 Normal 1.5-8.5 Lymph # 1.8 10 Normal 1.5-5.0 Humphreys # 0.5 10 Normal 0.0-0.8 Eos # 0.2 10 Normal 0.0-0.5 Baso # 0.0 10 Normal 0.0-0.2 Lipid Panel 07/21/2020 [facility] nter [phone] Triglycerides Level 113 mg/dL Normal <150 Cholesterol [...] Little GFR Left ESRD GFR <15 on COLOR STRAINING BAG WASHER Procedures Date Code Description Status 08/05/2020 39055 Preventive Medicine 40/64 Years, Est. Completed Medical Devices Description No Information Available Encounters Type Date Location Provider Dx Diagnosis Office Visit 08/05/2020 7:15a Main Office Jackie Zaragoza M.D. Z 00.00 Encntr for general adult medical exam w/o abnormal findings M54.5 Low back pain N20.0 Calculus of kidney Assessments Date Code Description Provider 01/16/2021 Z23 Encounter for immunization Willi Jackie munoz M.D. 08/05/2020 Z00.00 Encounter for general adult medi agnes examination without abno Jackie Zaragoza M.D. 08/05/2020 M54.5 Low back pain Jackie Zaragoza M.D. 08/05/2020 N20.0 Calculus of kidney Michael Zaragoza M.D. Plan of Treatment Future Appointment(s):* 08/06/2021 7:15 am - Romeo, Jackie A., M.D. at Main Office Functional Status Functional Condition Comment Date Status Glasses Active Independent with all ADL's Activ e Dental Device for John Active Independent with all IADL's Acti ve Mental Status Mental Condition Comment Date Status None Active Referrals Refer to Reason for Referral Status Appt Date [facility] patient will due to for his 10 year repeat colonoscopy, [place], we do not have a copy of this. thank you. Sent [address] [facility], [address] [place] [address] [phone]
--- OUTSIDE RECORDS SUMMARY | 2021-02-18 09:25 | CCD | Continuity of Care Document ---
Author Author Geoff NEELY M.D. Organization Unknown Address [address], [address], [place] [address] Phone [phone] Care Team Providers Care Television Writer Name Role Phone Leena Villatoro Unavailable Problems [...] Sanford Neely M.D. 05/23/2019 Azelastine HCL (Nasal) 137mcg/[place] Solution 2 sprays each nostril every day every morning for 90 days 90ml J30.89 Sanford Neely M.D. 04/02/2019 Fluticasone Propionate Nasal [place] Aller gy Relief 24- Hour 50mcg/Act Suspension [...] 12/05/2018 Allergy Injection 2 Or More Injection Safnord Neely M.D. 11/28/2018 Allergy Injection 2 Or [...] Information Available Procedures Date Code Description Status 01/09/2021 26079 Allergy Antigens Single Or Multi ple Completed 12/22/2020 52525 Allergy Injection 2 Or More Comp leted 12/03/2020 60135 Allergy Injection 2 Or More Comp leted 11/10/2020 07086 Allergy Injection 2 Or More Comp leted 10/13/2020 46236 Allergy Injection 2 Or More Comp leted 09/24/2020 47495 Office/Outpatient Established Lo w MDM 20-29 Min Completed 09/24/2020 05965 Allergy Injection 2 Or More Comp leted 09/02/2020 29823 Allergy Injection 2 Or More Comp leted 08/22/2020 61840 Allergy Antigens Single Or Multi ple Completed 08/13/2020 51794 Allergy Injection 2 Or More Comp leted 07/21/2020 28414 Allergy Injection 2 Or More Comp leted Medical Devices Description No Information Available Encounters Description No Information Available Assessments Date Code Description Provider 01/09/2021 J30.1 Allergic rhinitis due to pollen Sanford Neely M.D. 01/09/2021 J30.89 Other allergic rhinitis Sanford Neely M.D. [...]
--- OUTSIDE RECORDS SUMMARY | 2021-02-18 09:25 | CCD | Continuity of Care Document ---
Author Author Geoff NEELY M.D. Organization Unknown Address [address], [address], [place] [address] Phone [phone] Care Team Providers Care Logistics Team Leader Name Role Phone Leena Villatoro Unavailable Problems [...] dust mites o n intradermal test. Completed 2019. Social History Type Date Description Comments Sex Unknown Tobacco Use Start: 03/21/96 End: 03/21/99 Patient is a forme r smoker Document: 03/27/19 - History-Allergy Smoking Status Reviewed: 09/24/20 Patient is a former smoker Do cument: 03/27/19 - History-Allergy Allergies, Adverse Reactions, Alerts Active Allergies Criticality Reaction | Severity Comments Date Mickey Unable to assess criticality 03/27/2019 Medications Active Medications SIG Qnty Indications Ordering Provide r Date Loratadine 10mg Tablets take 1 tablet (10 mg) by oral route once daily 90tabs Sanford Neely M.D. 05/23/2019 Azelastine HCL (Nasal) 137mcg/[place] Solution 2 sprays each nostril every day every morning for 90 days 90ml J30.89 Sanford Neely M.D. 04/02/2019 Fluticasone Propionate Nasal [place] Aller gy Relief 24- Hour 50mcg/Act Suspension [...] 07/25/2019 Allergy Injection 2 Or More Injection Marc Gunn.Elias 07/04/2019 Allergy Injection 2 Or More Injection Sanford Neely M.D. 06/13/2019 Allergy Injection 2 Or More Injection Sanford Neely M.D. 05/23/2019 Allergy Injection 2 Or More Injection Marc Gunn.Elias 05/01/2019 Allergy Injection 2 Or More Injection Sanford Neely M.D. 04/11/2019 Allergy Injection 2 Or More Injection Nicola GunnDWalter 03/19/2019 Allergy Injection 2 Or More Injection [...] 12/19/2018 Allergy Injection 2 Or More Injection Marc Gunn.DWalter 12/19/2018 Allergy Injection 2 Or More Injection [...] Information Available Procedures Date Code Description Status 12/03/2020 49882 Allergy Injection 2 Or More Comp leted 11/10/2020 43992 Allergy Injection 2 Or More Comp leted 10/13/2020 98245 Allergy Injection 2 Or More Comp leted 09/24/2020 09586 Office/Outpatient Established Lo w MDM 20-29 Min Completed 09/24/2020 45925 Allergy Injection 2 Or More Comp leted 09/02/2020 63316 Allergy Injection 2 Or More Comp leted 08/22/2020 36569 Allergy Antigens Single Or Multi ple Completed 08/13/2020 52297 Allergy Injection 2 Or More Comp leted 07/21/2020 13200 Allergy Injection 2 Or More Comp leted 06/30/2020 22601 Allergy Injection 2 Or More Comp leted 06/09/2020 92023 Allergy Injection 2 Or More Comp leted Medical Devices Description No Information Available Encounters Description No Information Available Assessments Date Code Description Provider 12/03/2020 J30.1 Allergic rhinitis due to pollen Sanford Neely M.D. 12/03/2020 J30.89 Other allergic rhinitis Sanford Neely M.D. Plan of Treatment Future Appointment(s):* 09/23/2021 8:45 am - Sanford Neely M.D. [...]
[2021-02-18 10:08] LABS: RSV AMPLIFICATION NEGATIVE (NEGATIVE)
--- NOTE | 2021-02-18 10:55 | REP ---
INDICATION: Syncope/near-syncope. COMPARISON: None. TECHNIQUE: Portable FINDINGS: The technique utilized in obtaining the radiograph has magnified the cardiac silhouette and accentuated the interstitial markings. The lung [place] are hypoexpanded. This crowds the vascularity. No definite patchy opacities or pleural effusions are evident. The heart is not enlarged. The osseous structures are within normal limits. IMPRESSION: The exam is limited. There is no evidence of acute cardiopulmonary disease. Consider PA and lateral views of the chest. <Electronically signed by Wm Navarro > 02/18/21 [id number]
--- NOTE | 2021-02-18 10:56 | REP ---
INDICATION: trauma. COMPARISON: None. TECHNIQUE: AP and lateral views FINDINGS: There is mild disc space narrowing and mild to moderate anterior lipping at every level. There is scattered bilateral marginal osteophyte formation. Vertebral body height and alignment appears to be within normal limits. IMPRESSION: Chronic changes <Electronically signed by Wm Navarro > 02/18/21 1050
--- NOTE | 2021-02-18 11:04 | REP ---
INDICATION: trauma. COMPARISON: 12/09/2015 TECHNIQUE: Five views FINDINGS: There is L4-5 and L5-S1 marginal osteophytosis status quo. There is posterior disc space narrowing at every level status quo. Vertebral body height and alignment is again seen to be within normal limits. There is anterior lipping which has increased slightly. There is no spondylolysis or spondylolisthesis. There are degenerative facet joint changes seen status quo. IMPRESSION: No significant change from the prior exam. Chronic changes with degenerative disc disease and marginal osteophytosis <Electronically signed by Wm Navarro > 02/18/21 1100
--- NOTE | 2021-02-18 11:57 | REPVR ---
PROCEDURE INFORMATION: Exam: CT Maxillofacial Without Contrast Exam date and time: 02/18/2021 10:11 AM Age: 60 years old Clinical indication: Injury or trauma; Fall; Blunt trauma (contusions or hematomas); Head/scalp; Without loss of consciousness TECHNIQUE: Imaging protocol: Computed tomography images of the face without contrast. Radiation optimization: All CT scans at this facility use at least one of these dose optimization techniques: automated exposure control; mA and/or kV adjustment per patient size (includes targeted exams where dose is matched to clinical indication); or iterative reconstruction. COMPARISON: CT Head without contrast 05/27/2020 8:28 PM FINDINGS: Orbital cavity: Orbits are normal. Globes are unremarkable. Bones/joints: No acute fracture. Paranasal sinuses: Normal. No air-fluid levels. Soft tissues: Unremarkable. IMPRESSION: No acute findings. Electronically signed by: Adriana Ramos On 02/18/2021 11:56:28 AM
--- OUTSIDE RECORDS SUMMARY | 2021-02-18 13:22 | CCD ---
Author Author [facility] Organization [facility] Address Unknown Phone Unavailable Care Team Providers Care Economic Specialist Name Role Phone ELIZABETH NEELY MD Unavailable [...] A Jackie DAI Unavailable Unavailable Hegard, Rox SPECIALIST PHYSICIAN Unavailable Unavailable Hegard, Rox SPECIALIST PHYSICIAN Unavailable Unavailable Hegard, Rox SPECIALIST PHYSICIAN Unavailable Unavailable Hegard, Rox SPECIALIST PHYSICIAN Unavailable Unavailable Hegard, Rox SPECIALIST PHYSICIAN Unavailable Unavailable Hegard, Rox SPECIALIST PHYSICIAN Unavailable Unavailable Hegard, Rox SPECIALIST PHYSICIAN Unavailable Unavailable Hegard, Rox SPECIALIST PHYSICIAN Unavailable Unavailable Hegard, Rox SPECIALIST PHYSICIAN Unavailable Unavailable Hegard, Rox SPECIALIST PHYSICIAN Unavailable Unavailable Hegard, Rox SPECIALIST PHYSICIAN Unavailable Unavailable Hegard, Rox SPECIALIST PHYSICIAN Unavailable Unavailable Hegard, Rox SPECIALIST PHYSICIAN Unavailable Unavailable Hegard, Rox SPECIALIST PHYSICIAN Unavailable Unavailable Hegard, Rox SPECIALIST PHYSICIAN Unavailable Unavailable Hegard, Rox SPECIALIST PHYSICIAN Unavailable Unavailable Hegard, Rox SPECIALIST PHYSICIAN Unavailable Unavailable Re-disclosure Warning The records that [...] is protected by Article 27-F of the [facility] Public Health law. If you continue you may have access to information: Regarding HIV / AIDS; Provided by facilities licensed or operated by the [facility] Office of Mental Health; or Provided by the [facility] Office for People With Developmental Disabilities. If such information is present, then the following [facility] mandated warning applies: This information has [...] law may result in a fine or mcfp sentence or both. A general authorization for [...] [facility] ([facility]) Outpatient Attender: Jackie Walters MD Main Office 08/05/2020 07:15:0 0 AM EDT [facility] ([facility] [place] [address] [address] 06/15/2020 12:00:00 AM EDT eCW1 ([facility]) Out[place] [address] [address] 06/09/2020 12:00:00 AM EDT eCW1 ([facility]) Outpatient Attender: Jackie Walters MD Main Office [...] Complete: YESThis Data wa s Submitted to [facility] Via [employer]. COVID-19 VACC,MRNA(MODERNA)/PF 07/08/2020 12:00:00 AM EDT completed [facility] Moderna Sars-(Covid-19) vaccine, mRNA, LNP-S, PF, 100 mcg/ 0.5 mL 06/06/2020 12:00:00 AM EDT completed [facility] ([facility] COVID-19 VACCINE Moderna 06/06/2020 12:00:00 AM EDT completed [employer] Vaccine Series Complete: NOThis Data was Submitted to [facility] Via [employer]. COVID-19 VACCINE, MRNA-1273, LNP-S (MODERNA)/PF [...] to lind Policy Lind Plan Information [facility] (2018) Commercial [id number] Self [id number] [place]AST [employer] [id number] SP [id number] [facility] [id number] SP [id number] [place] Claim Commercial [id number] Self [id number] [place] Claim Commercial [id number] Self [id number] [place] Claim Commercial [id number] Self [id number] [facility] REGION [id number] SP [id number] EAST ACTIVE DUTY [id number] SP [id number] Prime Commercial [id number] Self [id number] Prime Commercial [id number] Self [id number] [employer] Commercial [id number] Self [id number] [employer] Commercial [id number] Self N REGIONAL CLAIMS VIKY -O/P [id number] 18 [id number] [facility] [id number] SP [id number] [employer] Commercial [id number] Self [employer] [id number] [facility] Program [id number] [place] Claim Commercial [id number] Self [id number] Problems, Conditions, and Diagnoses Code Display Name Description Problem Type Effective Dates Data Source(s) N20.0 Kidney stone Kidney stone Problem 06/09/2020 12:00:00 A M EDT eCW1 ([facility]) [id number] Kidney stone Kidney stone Problem 05/27/2020 12:00:00 A M EST [facility] ([facility] Surgeries/Procedures Procedure Description Date Indications Data Source(s) PROF IRIS NESS IMMNTX X W/PRV ALLGIC XTRCS NJXS 2020 12:00:00 AM EST [facility] ([facility]) OFFICE OUTPATIENT VISIT 25 MINUTES 01/26/2021 12:00:00 AM EST [facility] ([facility]) PROF SRINIVASAN AARONG IMMNTX X W/PRV ALLGIC XTRCS NJXS 2020 12:00:00 AM EDT [facility] ([facility]) PREPJ& ALLERGEN 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 01/09/2021 12:00:00 AM EDT [facility] PREPJ& ALLERGEN 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 08/22/2020 12:00:00 AM EDT [facility] ([facility]) PROF [facility] ALLG IMMNTX X W/PRV ALLGIC XTRCS NJXS 2020 12:00:00 AM EDT [facility] ([facility]) PERIODIC PREVENTIVE MED EST PATIENT 40-64YRS 12:00:00 AM EDT [facility] ([facility] PROF [facility] ALLG IMMNTX X W/PRV ALLGIC XTRCS NJXS 2020 12:00:00 AM EDT [facility] ([facility]) PROF [facility] ALLG IMMNTX X W/PRV ALLGIC XTRCS NJXS 2020 12:00:00 AM EDT [facility] ([facility]) PROF [facility] ALLG IMMNTX X W/PRV ALLGIC XTRCS NJXS 2020 12:00:00 AM EDT [facility] ([facility]) PROF [facility] ALLG IMMNTX X W/PRV ALLGIC XTRCS NJXS 2020 12:00:00 AM EST [facility] ([facility]) PROF [facility] ALLG IMMNTX X W/PRV ALLGIC XTRCS NJXS 2020 12:00:00 AM EST [facility] ([facility]) PROF [facility] ALLG IMMNTX X W/PRV ALLGIC XTRCS NJXS 2020 12:00:00 AM EST [facility] ([facility]) PROF [facility] ALLG IMMNTX X W/PRV ALLGIC XTRCS NJXS 2019 12:00:00 AM EST [facility] ([facility]) PREPJ& ALLERGEN 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 02/21/2020 12:00:00 AM EST [facility] ([facility]) PROF [facility] ALLG IMMNTX X W/PRV ALLGIC XTRCS NJXS 2019 12:00:00 AM EST [facility] ([facility]) PROF [facility] ALLG IMMNTX X W/PRV ALLGIC XTRCS NJXS 2019 12:00:00 AM EST [facility] ([facility]) PROF SVFLORA ALLG IMMNTX X W/PRV ALLGIC XTRCS NJXS 2019 12:00:00 AM EDT [facility] ([facility]) Results ID Date Data Source [id number] 07/21/2020 08:17:00 AM EDT [facility] ([facility] [...] [facility] ID Date Data Source [id number] 07/21/2020 08:17:00 AM EDT [facility] ([facility] Name Value Range Interpretation Code Description Data [facility] Supporting Document(s) Red Blood Count 4.61 10 [...] % 0.0-3.0 [facility] ([facility] [place] % 9.5 % 2.0-8.0 [facility] (Jackie arrington [...] 10 1.5-8.5 [facility] ([facility] [place] # 0.5 10 0.0-0.8 [facility] ([facility] Baso # 0.0 10 0.0-0.2 [facility] ([facility] Eos # 0.2 10 0.0-0.5 [facility] ([facility] ID Date Data Source [id number] 07/21/2020 08:17:00 AM EDT [facility] ([facility]ie Walters [...] Little GFR Left</content>
<content>ESRD GFR <15 on SENIOR ART DIRECTOR</content>
<content></content> Chloride Level 106 meq/L 98-107 [facility] [...] [facility] ID Date Data Source [id number] 05/27/2020 08:46:00 PM EST [facility] ([facility] Walters [...] finding (navigational concept) 26.0 MM/L 23.0-27.0 [facility] ([facility] Laboratory test finding (navigational concept) 1.6 mg/dL 0.6-1.3 [facility] ([facility] ID Date Data Source [id number] 05/27/2020 08:33:00 PM EST [facility] ([facility]ie Walters [...] pathogens. DISCLAIMER: Testing was performed using the [employer] SARS-CoV-2 test. This test was developed and its performance characteristics determined by [employer]. This test has not been FDA cleared [...] or revoked sooner. ID Date Data Source [id number] 05/27/2020 08:33:00 PM EST [facility] ([facility] Name Value Range Interpretation Code Description Data Michelle rce(s) Supporting Document(s) Lipoprotein lipase [Enzymatic activity/volume] in Serum or Plasm a 47 U/L 73-393 [facility] ([facility] <content>note:<nlbl:demographic_changed> </content>
<content></content> ID Date Data Source [id number] 05/27/2020 08:33:00 PM EST [facility] ([facility] Walters [...] [facility] ID Date Data Source [id number] 05/27/2020 08:33:00 PM EST [facility] ([facility] Name Value Range Interpretation Code Description Data Michelle rce(s) Supporting Document(s) Appearance, Urine Laboratory test result [facility] ([facility] Color, Urine Laboratory test result [facility] ([facility] PH,Urine 5.0 units 5.0-9.0 [facility] ([facility] Specific [place] Urine Auto 1.026 1.002-1.035 [facility] ([facility]ie Walters [...] [facility] ID Date Data Source [id number] 05/27/2020 08:33:00 PM EST [facility] ([facility]ie Walters [...] % 24.0-44.0 [facility] ([facility] [place] % 6.6 % 2.0-8.0 [facility] (Jackie arrington [...] 10 1.5-5.0 [facility] ([facility] [place] # 0.7 10 0.0-0.8 [facility] ([facility] Baso # 0.0 10 0.0-0.2 [facility] ([facility] Eos # 0.0 10 0.0-0.5 [facility] ([facility] ID Date Data Source [id number] 05/27/2020 08:33:00 PM EST [facility] Name Value Range Interpretation Code Description Data Michelle rce(s) Supporting Document(s) SARS coronavirus 2 RNA [Presence] in Res piratory specimen by KYLEIGH with probe detection NEGATIVE [facility] This lab was ordered by [facility] a nd reported by [facility]. ID Date Data Source [id number] 05/26/2020 07:29:00 PM EST [facility] ([facility]ie Walters [...] [facility] ID Date Data Source [id number] 01/29/2020 08:28:00 AM EST [facility] ([facility]ie Walters [...] smoker [facility] ([facility]) Smoking 08/05/2020 12:00:00 AM EDT Patient is a former smoker completed Patient is a former smoker [facility] ([facility] Smoking 06/09/2020 12:00:00 AM EDT Never Smoker completed Never S marcus eCW1 ([facility]) Smoking 06/09/2020 12:00:00 AM EDT Never Smoker completed Never S marcus eCW1 ([facility]) Vital Signs ID Date Data Source UNK Name Value Range Interpretation Code Description Data Source(s) Body mass index (BMI) [Ratio] 29.5 kg/m2 29.5 k g/m2 [facility] ([facility]) Systolic blood pressure 151 mm[Hg] 151 mm[Hg] M EDENT ([facility]) Diastolic blood pressure 84 mm[Hg] 84 mm[Hg] [facility] ([facility]) Heart rate 59 /min 59 /min [facility] ([facility]) Body temperature 98.3 [degF] 98.3 [degF] [facility] ([facility]) Body height 72 [in_i] 72 [in_i] MED[facility] ([facility]) 6'0" Body weight 217.25 [lb_av] 217.25 [lb_av] MEDEN T ([facility]) [place] body weight 178 [lb_av] 178 [lb_av] MEDEN T ([facility]) Body weight 98.545 kg 98.545 kg [facility] ([facility]) Body surface area Derived from formula 2.21 m2 2.21 m2 [facility] ([facility]) Systolic blood pressure 117 mm[Hg] 117 mm[Hg] M EDENT ([facility]) Diastolic blood pressure 70 mm[Hg] 70 mm[Hg] [facility] ([facility]) Oxygen saturation in Arterial blood by Pulse oximetry 98 % 98 % [facility] ([facility]) Heart rate 54 /min 54 /min [facility] ([facility]) [place] body weight 172 [lb_av] 172 [lb_av] MEDEN T ([facility] Body temperature 96.9 [degF] 96.9 [degF] [facility] ([facility] Body height 71.0 [in_i] 71.0 [in_i] [facility] ([facility] 5'11" Heart rate 63 /min 63 /min [facility] ([facility] Body weight 218.25 [lb_av] 218.25 [lb_av] MEDEN T ([facility]) Respiratory rate 16 /min 16 /min [facility] ( [facility]) Body height 72 [in_i] 72 [in_i] [facility] ([facility] 6'0" Systolic blood pressure 109 mm[Hg] 109 mm[Hg] M EDENT ([facility]) Diastolic blood pressure 70 mm[Hg] 70 mm[Hg] [facility] ([facility]) Body mass index (BMI) [Ratio] 29.6 kg/m2 29.6 k g/m2 [facility] ([facility]) Systolic blood pressure 106 mm[Hg] 106 mm[Hg] EDENT ([facility] Body temperature 96.8 [degF] 96.8 [degF] [facility] ([facility] Respiratory rate 17 /min 17 /min [facility] ( [facility] Body weight 227.38 [lb_av] 227.38 [lb_av] MEDEN T ([facility] Oxygen saturation in Arterial blood by Pulse oximetry 99 % 99 % [facility] ([facility] [place] body weight 172 [lb_av] 172 [lb_av] MEDEN T ([facility] Body mass index (BMI) [Ratio] 31.7 kg/m2 31.7 k g/m2 [facility] ([facility] Diastolic blood pressure 76 mm[Hg] 76 mm[Hg] [facility] ([facility] Heart rate 60 /min 60 /min [facility] ([facility] Body height 71.0 [in_i] 71.0 [in_i] [facility] ([facility] 5'11" Body weight 237 [lb_av] 237 [lb_av] eCW1 ([facility]) Body mass index (BMI) [Ratio] 32.14 kg/m2 32.14 kg/m2 eCW1 ([facility]) Heart rate 60 /min 60 /min eCW1 ([facility]) Body height [in_i] eCW1 ([facility]) Respiratory rate 17 /min 17 /min eCW1 ([facility]) Body temperature 96.3 [degF] 96.3 [degF] eCW1 ( [facility]) Systolic blood pressure 126 mm[Hg] 126 mm[Hg] e CW1 ([facility]) Diastolic blood pressure 78 mm[Hg] 78 mm[Hg] eCW1 ([facility]) Systolic blood pressure 119 mm[Hg] 119 mm[Hg] M EDENT ([facility] Diastolic blood pressure 59 mm[Hg] 59 mm[Hg] [facility] ([facility] Heart rate 88 /min 88 /min [facility] ([facility] Oxygen saturation in Arterial blood by Pulse oximetry 97 % 97 % [facility] ([facility] [place] body weight 172 [lb_av] 172 [lb_av] MEDEN T ([facility] Body mass index (BMI) [Ratio] 34.4 kg/m2 34.4 k g/m2 [facility] ([facility] Body temperature 97.1 [degF] 97.1 [degF] [facility] ([facility] Body weight [...] 98 % [facility] ([facility] Diastolic blood pressure 63 mm[Hg] 63 mm[Hg] [facility] ([facility] Systolic blood pressure 118 mm[Hg] 118 mm[Hg] M EDENT ([facility] Body mass index (BMI) [Ratio] 36.0 kg/m2 36.0 k g/m2 [facility] ([facility] Heart rate 56 /min 56 /min [facility] ([facility] Body temperature 98.0 [degF] 98.0 [degF] [facility] ([facility] Body height 71.0 [in_i] 71.0 [in_i] [facility] ([facility] 5'11" [place] body weight 172 [lb_av] 172 [lb_av] MEDEN T ([facility] Body temperature 97.7 [degF] 97.7 [degF] [facility] ([facility]
[2021-02-18] MEDS: NS 1,000 ML IV SCH ×2 (13:29→23:48)
[2021-02-18] MEDS ORDERED: HOME MED LIST COMPLETE! XX SCH (13:50)
[2021-02-18] MEDS ORDERED: LORATADINE 10 MG TAB PO PRN (14:25)
[2021-02-18] MEDS ORDERED: FLUTICASONE PROP 0.05% NASAL SPRAY 16 GM (FLONASE) NARES PRN (14:25)
--- NOTE | 2021-02-18 15:51 | HPEPDOC ---
General Date of Admission Feb 18, 2021 at 07:47 Date of Service: Feb 18, 2021 Chief Complaint The patient is a 60-year-old male admitted with a reason for visit of Syncope. History of Present Illness Mr. Saez is a 60-year-old male who is here for syncope. Yesterday, patient had his Moderna booster (3rd vaccine). He told me that he did not have any reactions with the first 2 vaccines. He did not have a reaction after the booster. This morning around 6:30 AM, he took his omeprazole and vitamin D3. He then suddenly felt clammy. Denied any chest pain or lightheadedness. The next thing he remembers is hearing his in the distance on the phone. Patient was brought to the hospital for syncope. While here, patient was not tachycardic but blood pressure was soft with a systolic blood pressure in the low 100s. He was doing well at room air. Labs are negative for anemia or hypoglycemia. Patient had CT of the head, maxillofacial, cervical spine, thoracic spine, lumbar spine, and chest x-ray. There are no fractures. When I saw patient, he had crusty blood on his lips and bruising/bleeding occipital head. He appeared mildly lethargic but ANO x3 and cooperative. Patient denied any fever or chills, chest pain, dyspnea, abdominal pain, diarrhea, or dysuria. He did not have any nausea vomiting. He tells me that yesterday his appetite was a little poor. Otherwise denies any lightheadedness or palpitations, just clamminess. Patient will be placed in observation for syncope. Home Medications Scheduled Cholecalciferol (Vitamin D3) (Vitamin D3) 125 Mcg (5000 Unit) Tab.rapdis, 125 MCG PO DAILY, (Reported) Montelukast Sodium (Montelukast Sodium) 10 Mg Tablet, 10 MG PO QHS, (Reported) Omeprazole (Omeprazole) 20 Mg Capsule.dr, 20 MG PO DAILY, (Reported) Scheduled PRN Fluticasone Furoate (Flonase Sensimist) 5.9 Ml [place].susp, 50 MCG NARES DAILY PRN for NASAL DRYNESS, (Reported) Loratadine (Loradamed) 10 Mg Tablet, 10 MG PO DAILY PRN for ALLERGIES, (Reported) Allergies Coded Allergies: niacin (Verified Adverse Reaction, Intermediate, passes out, 05/26/20) Past Medical History Medical History 1. Seasonal allergies 2. GERD 3. ERNESTO uses dental device Surgical History 1. Umbilical hernia repair 2. Right knee arthroscopy x2 3. Bilateral bunionectomy Family History Father: History of bladder cancer and stage IV lymphoma either in the esophagus or kidney Mother: History of breast cancer Social History * Smoker: former Smoker (Quit 20 years ago) Alcohol: occationally Drugs: denies A-FIB/CHADSVASC A-FIB History Current/History of A-Fib/PAF?: No Review of Systems Constitutional: Reports: Other ([place] clammy prior to passing out); Denies: Chills, Fever Eyes: Denies: Vision change ENT: Denies: Sore Throat Skin: Denies: Rash Pulmonary: Denies: Dyspnea, Cough Cardiovascular: Denies: Chest Pain, Palpitations Gastrointestinal: Denies: Nausea, Abdominal Pain, Diarrhea Genitourinary: Denies: Dysuria Hematologic: Reports: Bruising Musculoskeletal: Reports: Muscle Pain (Secondary to fall) Neurological: Denies: Numbness Psych: Denies: Anxiety, Depression Physical Examination General Exam: Positive: Alert, Cooperative Eye Exam: Positive: EOMI; Negative: Sclera icteric ENT Exam: Positive: Other ENT (Old crusted blood on lips) Chest Exam: Positive: Clear to auscultation; Negative: Rales, Rhonchi, Wheezing Heart Exam: Positive: Rate Normal, Regular Rhythm Abdomen Exam: Positive: Normal bowel sounds, Soft; Negative: Tenderness Skin Exam: Positive: Other skin issue (Bruising occipital head) Neuro Exam: Positive: Cranial Nerves 3-12 NL Psych Exam: Positive: Mental status NL, Mood NL Vital Signs Vital Signs Date Time Temp Pulse Resp B/P (MAP) Pulse Ox O2 Delivery O2 Flow Rate FiO2 02/18/21 12:15 92 102/55 (71) 92 02/18/21 10:44 18 02/18/21 08:08 97.3 Room Air Laboratory Data Labs 24H Laboratory Tests 2 02/18/21 08:06: Immature Granulocyte % (Auto) 0.5, Neutrophils (%) (Auto) 85.2H, Lymphocytes (%) (Auto) 8.0L, Monocytes (%) (Auto) 5.1, Eosinophils (%) (Auto) 0.9, Basophils (%) (Auto) 0.3, Neutrophils # (Auto) 8.2, Lymphocytes # (Auto) 0.8L, Monocytes # (Auto) 0.5, Eosinophils # (Auto) 0.1, Basophils # (Auto) 0.0, Nucleated Red Blood Cells % (auto) 0.0, Anion Gap 6L, Glomerular Filtration Rate > 60.0, Calcium Level 9.0, Magnesium Level 2.2, Thyroid Stimulating Hormone (TSH) 1.170, Free Thyroxine 1.07 02/18/21 08:16: Bedside Glucose (Misc Panel) 119H 02/18/21 08:17: POC Troponin I (Misc) 0.00 02/18/21 08:55: Coronavirus (COVID-19)(PCR) NEGATIVE, Influenza Type A (RT-PCR) NEGATIVE, Influenza Type B (RT-PCR) NEGATIVE, Respiratory Syncytial Virus (PCR) NEGATIVE CBC/BMP Laboratory Tests 02/18/21 08:06 Assessment/Plan Mr. Saez is a 60-year-old male who is here for syncope. Possibly an adverse reaction to vaccination. On admission, patient's blood pressures were low. Patient may also have orthostatic hypotension. Patient will be given IV fluids and monitored on telemetry. Echocardiogram has been ordered. Plan / VTE VTE Prophylaxis Ordered?: Yes Plan Plan 1. Syncope Unclear etiology Blood pressures were soft on admission, possibly hypovolemic IV fluids Telemetry and echocardiogram 2. Seasonal allergies Patient may use montelukast, loratadine, and fluticasone as needed for allergies 3. Chronic low back pain Continue [place] as needed 4. Vitamin D deficiency Continue vitamin D supplementation 5. GERD Continue omeprazole 6. DVT prophylaxis SCDs and teds Disposition: Pending telemetry results, echocardiogram, and orthostatic vitals. ITALIA ESPAÑA DO Feb 18, 2021 15:47
[2021-02-18] MEDS: NORCO, ANEXSIA 5/325MG TABLET (HYDROcodone/ACETAMINOPHEN) PO PRN (17:28)
[2021-02-18 17:43] VITALS: BP_SYST 131; BP_SYST 135; BP_SYST 145; BP_DIAS 66; BP_DIAS 70; BP_DIAS 90
[2021-02-18] MEDS: ACETAMINOPHEN TAB 650MG DOSE (2X325MG) PO PRN (20:32)
[2021-02-18] MEDS ORDERED: MONTELUKAST 10 MG TAB PO SCH (21:00)
[2021-02-18 21:45] VITALS: BP 118/72
[2021-02-19] MEDS: NORCO, ANEXSIA 5/325MG TABLET (HYDROcodone/ACETAMINOPHEN) PO PRN (01:22)
[2021-02-19 06:00] VITALS: BP 115/67
[2021-02-19 06:13] LABS: HEMATOCRIT 38.1 % (42.0-52.0); HEMOGLOBIN 12.6 g/dl (13.5-17.5); MEAN CORPUSCULAR HEMOGLOBIN 31.7 pg (27.0-33.0); MEAN CORPUSCULAR HGB CONC 33.1 g/dl (32.0-36.5); PLATELET COUNT, AUTOMATED 183 10^3/uL (150-450); RED BLOOD COUNT 3.97 10^6/uL (4.30-6.10); WHITE BLOOD COUNT 7.6 10^3/uL (4.0-10.0)
[2021-02-19 06:41] LABS: BLOOD UREA NITROGEN 12 MG/DL (7-18); CALCIUM LEVEL 8.3 MG/DL (8.5-10.1); CARBON DIOXIDE LEVEL 27 MEQ/L (21-32); CHLORIDE LEVEL 111 MEQ/L (98-107); CREATININE FOR GFR 0.91 MG/DL (0.70-1.30); GLOMERULAR FILTRATION RATE > 60.0 (>56); GLUCOSE, FASTING 104 MG/DL (70-100); POTASSIUM SERUM 4.6 MEQ/L (3.5-5.1); SODIUM LEVEL 144 MEQ/L (136-145)
[2021-02-19] MEDS ORDERED: OMEPRAZOLE 20 MG CAP PO SCH (09:00)
[2021-02-19] MEDS ORDERED: VITAMIN D 1,000 INTERNATIONAL UNITS TABLET PO SCH (09:00)
[2021-02-19] MEDS: NS 1,000 ML IV SCH (09:59)
[2021-02-19 15:00] VITALS: BP_SYST 132; BP_SYST 138; BP_SYST 142; BP_DIAS 74; BP_DIAS 76; BP_DIAS 82
[2021-02-19] MEDS: ACETAMINOPHEN TAB 650MG DOSE (2X325MG) PO PRN (15:17)
--- NOTE | 2021-02-19 23:05 | DS.PDOC ---
Discharge Summary General Date of Admission Feb 18, 2021 at 07:47 Date of Discharge Feb 19, 2021 Discharge Summary PROCEDURES PERFORMED DURING STAY: None ADMITTING DIAGNOSES: 1. Syncope 2. Seasonal allergies 3. Chronic low back pain 4. Vitamin D deficiency 5. GERD DISCHARGE DIAGNOSES: 1. Syncope 2. Seasonal allergies 3. Chronic low back pain 4. Vitamin D deficiency 5. GERD COMPLICATIONS/CHIEF COMPLAINT: Syncope. HISTORY OF PRESENT ILLNESS: Mr. Saez is a 60-year-old male who is here for s yncope. Yesterday, patient had his Moderna booster (3rd vaccine). He told me that he did not have any reactions with the first 2 vaccines. He did not have a reaction after the booster. This morning around 6:30 AM, he took his omeprazole and vitamin D3. He then suddenly felt clammy. Denied any chest pain or lightheadedness. The next thing he remembers is hearing his in the distance on the phone. Patient was brought to the hospital for syncope. While here, patient was not tachycardic but blood pressure was soft with a systolic blood pressure in the low 100s. He was doing well at room air. Labs are negative for anemia or hypoglycemia. Patient had CT of the head, maxillofacial, cervical spine, thoracic spine, lumbar spine, and chest x-ray. There are no fractures. When I saw patient, he had crusty blood on his lips and bruising/bleeding occipital head. He appeared mildly lethargic but ANO x3 and cooperative. Patient denied any fever or chills, chest pain, dyspnea, abdominal pain, diarrhea, or dysuria. He did not have any nausea vomiting. He tells me that yesterday his appetite was a little poor. Otherwise denies any lightheadedness or palpitations, just clamminess. Patient will be placed in observation for syncope. HOSPITAL COURSE: Patient was given IVF and blood pressure improved. Patient was orthostatic negative. The following day, he was feeling better. Denied any lightheadedness or dizziness. The clammy feeling did not return. Denied any chest pain or dyspnea. He felt ready for home. There was no events on the telemetry. Echocardiogram obtained. Patient was discharged home today. DISCHARGE MEDICATIONS: Please see below. ALLERGIES: Please see below. PHYSICAL EXAMINATION ON DISCHARGE: VITAL SIGNS: Please see below. GENERAL: Comfortable, in no apparent distress. HEENT: Laceration of low lip (midline), EOMI, sclera clear. NECK: Supple. RESPIRATORY: Lungs clear to auscultation bilaterally, no rales, wheeze or rhonchi. CARDIOVASCULAR: Regular rate and rhythm. ABDOMEN: Soft, nontender, no guarding or rebound tenderness. Normal bowel sounds. MUSCLE SKELETAL: Muscle strength 5/5 in all extremities. NEUROLOGICAL: CN 312 grossly intact, no focal deficits noted. PSYCHOLOGICAL: Normal mood and affect LABORATORY DATA: Please see below. IMAGING: Please see chart for radiologist reports PROGNOSIS: Good ACTIVITY: As tolerated. DIET: As tolerated DISCHARGE PLAN: Return home. Drink plenty of fluids DISPOSITION: Home, Self-Care. DISCHARGE INSTRUCTIONS: 1. Follow up with PCP within a week ITEMS TO FOLLOWUP ON ON OUTPATIENT: 1. Echocardiogram results DISCHARGE CONDITION: Stable. Total time spent on discharge planning, discharge summary, and medication reconciliation: 28 minutes Vital Signs/I&Os Vital Signs Date Time Temp Pulse Resp B/P (MAP) Pulse Ox O2 Delivery O2 Flow Rate FiO2 02/19/21 15:00 63 132/74 (93) 61 138/82 (100) 71 142/76 (98) 02/19/21 14:00 99.1 18 97 Room Air I&O- Last 24 Hours up to 6 AM 02/19/21 06:00 Intake Total 1100 ml Output Total 700 ml Balance 400 ml Laboratory Data Labs 24H Laboratory Tests 2 02/19/21 05:54: Nucleated Red Blood Cells % (auto) 0.0, Anion Gap 6L, Glomerular Filtration Rate > 60.0, Calcium Level 8.3L CBC/BMP Laboratory Tests 02/19/21 05:54 Discharge Medications Scheduled Cholecalciferol (Vitamin D3) (Vitamin D3) 125 Mcg (5000 Unit) Tab.rapdis, 125 MC G PO DAILY, (Reported) Montelukast Sodium (Montelukast Sodium) 10 Mg Tablet, 10 MG PO QHS, (Reported) Omeprazole (Omeprazole) 20 Mg Capsule.dr, 20 MG PO DAILY, (Reported) Scheduled PRN Fluticasone Furoate (Flonase Sensimist) 5.9 Ml [place].susp, 50 MCG NARES DAILY PRN for NASAL DRYNESS, (Reported) Loratadine (Loradamed) 10 Mg Tablet, 10 MG PO DAILY PRN for ALLERGIES, (Reported) Allergies Coded Allergies: niacin (Verified Adverse Reaction, Intermediate, passes out, 05/26/20) ITALIA ESPAÑA DO Feb 19, 2021 23:05
--- NOTE | 2021-02-24 08:19 | ECHO ---
ECHOCARDIOGRAM DATE OF PROCEDURE: 02/19/2021 Age: 60 Gender: Male Height: 183 cm Weight: 95 kg REFERRING PHYSICIAN: Dr. Reji Zeng PATIENT LOCATION: Room 4224 REASON FOR THE TESTING: Syncope 2-DIMENSIONAL MEASUREMENTS: 2D MEASUREMENTS: IVS 0.82 cm LV 4.4 cm LVPW 1.0 cm LA 3.5 cm Aorta 3.6 cm IVC 2.1 cm DOPPLER MEASURMENTS: Peak velocity across the aortic valve 1.4 m/s Peak velocity across the LVOT 1.2 m/s Peak gradient across the aortic valve mmHg Mean gradient across the aortic valve mmHg Mitral E 0.89, mitral A 0.64 with a ratio of 1.4 Maximum tricuspid valve velocity 2.7 m/s 2D COMMENTS: 1. Normal left ventricular size, wall thickness, and normal global left ventricular systolic function. The estimated left ventricular systolic ejection fraction is 65% to 70%. 2. Normal left atrium. Normal right atrium and right ventricle. 3. The atrial septum appeared to be normal without evidence of defect or shunt. 4. Normal aortic root. 5. No pericardial effusion seen. 6. The aortic valve, mitral valve, tricuspid valve, and pulmonic valve appeared to be normal. 7. The inferior vena cava was mildly enlarged at 1.2 cm; central venous pressure might be elevated. DOPPLER: It detects trace mitral regurgitation and mild tricuspid regurgitation. The calculated pulmonary artery systolic pressure varies between 30-40 mmHg. Abnormal relaxation pattern was noted across the mitral valve annulus consistent with grade 2 left ventricular diastolic dysfunction. IMPRESSION: 1. Normal global left ventricular systolic function. There are some features of grade 2 left ventricular diastolic dysfunction, left ventricular end-diastolic pressure might be elevated. 2. Trace mitral regurgitation. 3. Mild tricuspid regurgitation with mild pulmonary hypertension. 4. There are features of elevated central venous pressure; the inferior vena cava is dilated. 5. Global longitudinal strain (GLS) was calculated at -17.9%, normal. MTDD
== END 2021-02-19 17:38 | disposition home or self-care (01) ==
LOC: EDBD 07:46 → M ED 07:46 → M ED INP 07:47 → ENRESERV 15:15 → M MSPAV 17:10
PROVIDERS: ADMIT Internal Medicine; ATTEND Internal Medicine
DX: R55 Syncope and collapse (principal); J30.2 Other seasonal allergic rhinitis; G89.29 Other chronic pain; K21.9 Gastro-esophageal reflux disease without esophagitis; E55.9 Vitamin D deficiency, unspecified; Z79.899 Other long term (current) drug therapy; Z88.8 Allergy status to other drugs, medicaments and biological substances
CPT/HCPCS: 36415; 70450; 70486; 71045; 72072; 72110; 72125; 80048; 83735; 84439; 84443; 84484; 85025; 85027; 87631; 93005; 93041; 93306; 94760; 96374; 96375; 96376; 99285; J2270; J2405

== ENCOUNTER → 2021-05-13 | Outpatient (REF) ==
[~2021-05-13] MED LIST changes: -MONT10TA10 PO; +MONT10TA97 PO
== END ==
LOC: M LABSMTC 10:05
PROVIDERS: ATTEND Pediatrics
DX: Z11.52 Encounter for screening for COVID-19 (principal); Z20.822 Contact with and (suspected) exposure to COVID-19

== ENCOUNTER → 2021-05-22 | Outpatient (CLI) | payer OTHER | LOC: M SLEEP HO 09:39 | PROVIDERS: ATTEND Internal Medicine Cardiovascular Disease | DX: G47.33 Obstructive sleep apnea (adult) (pediatric) (principal) ==

== ENCOUNTER → 2021-08-25 | Outpatient (REF) | payer OTHER ==
[2021-08-25 16:51] LABS: BASO % 0.6 % (0.0-1.0); EOS # 0.1 10^3/uL (0.0-0.5); EOS % 1.7 % (0.0-3.0); HEMATOCRIT 40.7 % (42.0-52.0); HEMOGLOBIN 13.4 g/dl (13.5-17.5); LYMPH # 1.5 10^3/uL (1.5-5.0); LYMPH % 32.4 % (24.0-44.0); MEAN CORPUSCULAR HEMOGLOBIN 31.3 pg (27.0-33.0); MEAN CORPUSCULAR HGB CONC 32.9 g/dl (32.0-36.5); MEAN CORPUSCULAR VOLUME 95.1 fl (80.0-96.0); MONO # 0.4 10^3/uL (0.0-0.8); MONO % 8.4 % (2.0-8.0); NEUTROPHILS # 2.6 10^3/uL (1.5-8.5); NEUTROPHILS % 56.7 % (36.0-66.0); PLATELET COUNT, AUTOMATED 224 10^3/uL (150-450); RED BLOOD COUNT 4.28 10^6/uL (4.30-6.10); WHITE BLOOD COUNT 4.7 10^3/uL (4.0-10.0)
[2021-08-25 17:28] LABS: ALBUMIN 3.7 GM/DL (3.2-5.2); ALT/SGPT 21 U/L (12-78); BILIRUBIN,TOTAL 0.5 MG/DL (0.2-1.0); BLOOD UREA NITROGEN 12 MG/DL (7-18); CALCIUM LEVEL 9.1 MG/DL (8.8-10.2); CARBON DIOXIDE LEVEL 27 MEQ/L (21-32); CHLORIDE LEVEL 112 MEQ/L (98-107); CHOLESTEROL LEVEL 189 MG/DL (<200); CHOLESTEROL RISK RATIO 3.258 (<5); GLOMERULAR FILTRATION RATE > 60.0 (>49); GLUCOSE, FASTING 96 MG/DL (70-100); HDL CHOLESTEROL 58 MG/DL (>40); LDL CHOLESTEROL 115 MG/DL (<100); NON-HDL-C 131 MG/DL; POTASSIUM SERUM 4.6 MEQ/L (3.5-5.1); SODIUM LEVEL 142 MEQ/L (136-145); THYROID STIMULATING HORMONE 0.677 uIU/ML (0.358-3.740); TOTAL PROTEIN 6.6 GM/DL (6.4-8.2); TRIGLYCERIDES LEVEL 80 MG/DL (<150)
[2021-08-25 17:30] LABS: TOTAL 25(OH) VITAMIN D 70.4 NG/ML (30.0-100.0)
[2021-08-25 18:22] LABS: APPEARANCE, URINE CLEAR (CLEAR); BACTERIA, URINE AUTO NEGATIVE (NEGATIVE); BILIRUBIN, URINE AUTO NEGATIVE (NEGATIVE); BLOOD, URINE BLOOD NEGATIVE (NEGATIVE); COLOR, URINE YELLOW (YELLOW); GLUCOSE, URINE (UA) AUTO NEGATIVE (NEGATIVE); KETONE, URINE AUTO NEGATIVE (NEGATIVE); LEUKOCYTE ESTERASE, URINE AUTO NEGATIVE (NEGATIVE); MUCUS, URINE SMALL (NEGATIVE); NITRITE, URINE AUTO NEGATIVE (NEGATIVE); PROTEIN, URINE AUTO NEGATIVE (NEGATIVE); RBC, URINE AUTO 1 /HPF (0-3); SQUAMOUS EPITHELIAL CELL UR AU 0 /HPF (0-6); UROBILINOGEN, URINE AUTO 0.2 mg/dL (0.0-2.0); WBC, URINE AUTO 1 /HPF (0-3)
== END ==
LOC: M SFHCCAPE 09:26
PROVIDERS: ATTEND Physician Assistant
DX: Z00.00 Encounter for general adult medical examination without abnormal findings (principal)
CPT/HCPCS: 36415; 80053; 80061; 81001; 82306; 84443; 85025; 90471; 90715; G0103; G0463

== ENCOUNTER → 2021-09-08 | Outpatient (CLI) | payer OTHER | LOC: M RAD 10:08 | PROVIDERS: ATTEND Physician Assistant | DX: R22.2 Localized swelling, mass and lump, trunk (principal) ==

== ENCOUNTER → 2021-09-08 | Outpatient (CLI) | payer OTHER | LOC: M SOG 08:31 | PROVIDERS: ATTEND Orthopaedic Surgery | DX: Z47.89 Encounter for other orthopedic aftercare (principal) ==

== ENCOUNTER → 2021-11-03 | Outpatient (CLI) | payer OTHER | LOC: M PLAIMG 14:39 | PROVIDERS: ATTEND Physician Assistant | DX: R22.2 Localized swelling, mass and lump, trunk (principal); M51.26 Other intervertebral disc displacement, lumbar region; M51.27 Other intervertebral disc displacement, lumbosacral region ==

== ENCOUNTER → 2021-12-06 | Outpatient (CLI) | payer OTHER ==
[~2021-12-06] MED LIST changes: +MELO7.5T35 PO
== END ==
LOC: M LABSMTC 11:48
PROVIDERS: ATTEND Anesthesiology
DX: Z01.812 Encounter for preprocedural laboratory examination (principal); Z11.52 Encounter for screening for COVID-19

== ENCOUNTER 2021-12-10 10:24 | Day surgery (SDC) | payer OTHER ==
[~2021-12-10] VITALS: Ht 182.9 cm; Wt 96.8 kg
[~2021-12-10 10:24] MED LIST changes: +NS 1,000 ML IV ONE
[2021-12-10] MEDS ORDERED: propofoL 200 MG/20 ML VIAL As Ordered ONE (11:32)
[2021-12-10] MEDS ORDERED: LIDOCAINE 2% 100MG/5ML SDV (FOR ANES.) As Ordered ONE (11:32)
[2021-12-10 12:25] VITALS: BP 117/75
== END 2021-12-10 12:33 | disposition home or self-care (01) ==
LOC: M OPP 10:24
PROVIDERS: ATTEND Surgery
DX: Z12.11 Encounter for screening for malignant neoplasm of colon (principal); D12.2 Benign neoplasm of ascending colon; K57.30 Diverticulosis of large intestine without perforation or abscess without bleeding; K64.1 Second degree hemorrhoids; K44.9 Diaphragmatic hernia without obstruction or gangrene; K29.60 Other gastritis without bleeding; Z79.52 Long term (current) use of systemic steroids; Z79.899 Other long term (current) drug therapy; Z88.8 Allergy status to other drugs, medicaments and biological substances; G47.30 Sleep apnea, unspecified; K21.00 Gastro-esophageal reflux disease with esophagitis, without bleeding; Z87.891 Personal history of nicotine dependence

== ENCOUNTER → 2022-01-12 | Outpatient (CLI) | payer OTHER ==
[~2022-01-12] MED LIST changes: -NS 1,000 ML IV ONE
== END ==
LOC: M SOG 07:51
PROVIDERS: ATTEND Orthopaedic Surgery
DX: M51.36 Other intervertebral disc degeneration, lumbar region (principal); M51.37 Other intervertebral disc degeneration, lumbosacral region

== ENCOUNTER → 2022-03-23 | Outpatient (REF) | payer OTHER | LOC: M SFHCCAPE 10:55 | PROVIDERS: ATTEND Physician Assistant | DX: J40 Bronchitis, not specified as acute or chronic (principal); J22 Unspecified acute lower respiratory infection ==

== ENCOUNTER → 2022-09-28 | Outpatient (REF) | payer OTHER ==
[2022-09-28 18:30] LABS: BASO % 0.6 % (0.0-1.0); EOS # 0.2 10^3/uL (0.0-0.5); EOS % 3.8 % (0.0-3.0); HEMATOCRIT 42.9 % (42.0-52.0); HEMOGLOBIN 13.9 g/dl (13.5-17.5); LYMPH # 1.6 10^3/uL (1.5-5.0); LYMPH % 32.3 % (24.0-44.0); MEAN CORPUSCULAR HEMOGLOBIN 31.2 pg (27.0-33.0); MEAN CORPUSCULAR HGB CONC 32.4 g/dl (32.0-36.5); MEAN CORPUSCULAR VOLUME 96.2 fl (80.0-96.0); MONO # 0.5 10^3/uL (0.0-0.8); MONO % 9.2 % (2.0-8.0); NEUTROPHILS # 2.7 10^3/uL (1.5-8.5); NEUTROPHILS % 53.9 % (36.0-66.0); PLATELET COUNT, AUTOMATED 228 10^3/uL (150-450); RED BLOOD COUNT 4.46 10^6/uL (4.30-6.10)
[2022-09-28 18:53] LABS: THYROID STIMULATING HORMONE 0.983 uIU/ML (0.55-4.78); TOTAL 25(OH) VITAMIN D 71.9 NG/ML (20.0-100.0)
[2022-09-28 18:54] LABS: ALBUMIN 3.7 G/DL (3.2-5.2); ALKALINE PHOSPHATASE 67 U/L (46-116); ALT/SGPT 21 U/L (7.0-40); AST/SGOT 16 U/L (<34); BILIRUBIN,TOTAL 0.4 MG/DL (0.3-1.2); BLOOD UREA NITROGEN 19 MG/DL (9-23); CALCIUM LEVEL 9.2 MG/DL (8.3-10.6); CARBON DIOXIDE LEVEL 30 MMOL/L (20-31); CHLORIDE LEVEL 108 MMOL/L (98-107); CHOLESTEROL LEVEL 169 MG/DL (<200); CHOLESTEROL RISK RATIO 3.66 (<5); CREATININE FOR GFR 0.94 MG/DL (0.70-1.30); GLOMERULAR FILTRATION RATE > 60.0 (>49); GLUCOSE, FASTING 96 MG/DL (74-106); HDL CHOLESTEROL 46.1 MG/DL (>40); LDL CHOLESTEROL 106.9 MG/DL (<100); NON-HDL-C 122.9 MG/DL; POTASSIUM SERUM 5.4 MMOL/L (3.5-5.1); SODIUM LEVEL 140 MMOL/L (136-145); TOTAL PROTEIN 6.5 G/DL (5.7-8.2); TRIGLYCERIDES LEVEL 80 MG/DL (<150)
== END ==
LOC: M SFHCCAPE 07:20
PROVIDERS: ATTEND Physician Assistant
DX: K21.9 Gastro-esophageal reflux disease without esophagitis (principal); M51.26 Other intervertebral disc displacement, lumbar region; E55.9 Vitamin D deficiency, unspecified; Z12.5 Encounter for screening for malignant neoplasm of prostate
CPT/HCPCS: 36415; 80053; 80061; 82306; 84443; 85025; G0103

== ENCOUNTER → 2022-10-19 | Outpatient (REF) | payer OTHER ==
[2022-10-19 18:19] LABS: POTASSIUM SERUM 4.5 MMOL/L (3.5-5.1)
== END ==
LOC: M SFHCCAPE 07:30
PROVIDERS: ATTEND Physician Assistant
DX: E87.5 Hyperkalemia (principal)

== ENCOUNTER → 2023-03-16 | Outpatient (REF) | payer OTHER ==
[2023-03-16 17:27] LABS: BASO % 0.6 % (0.0-1.0); EOS # 0.2 10^3/uL (0.0-0.5); EOS % 2.4 % (0.0-3.0); HEMATOCRIT 42.2 % (42.0-52.0); LYMPH % 31.9 % (24.0-44.0); MEAN CORPUSCULAR HGB CONC 33.2 g/dl (32.0-36.5); MEAN CORPUSCULAR VOLUME 93.6 fl (80.0-96.0); MONO # 0.5 10^3/uL (0.0-0.8); MONO % 8.5 % (2.0-8.0); NEUTROPHILS # 3.5 10^3/uL (1.5-8.5); NEUTROPHILS % 56.4 % (36.0-66.0); PLATELET COUNT, AUTOMATED 246 10^3/uL (150-450); RED BLOOD COUNT 4.51 10^6/uL (4.30-6.10); WHITE BLOOD COUNT 6.3 10^3/uL (4.0-10.0)
[2023-03-16 17:59] LABS: ALBUMIN 3.7 G/DL (3.2-5.2); ALKALINE PHOSPHATASE 81 U/L (46-116); ALT/SGPT 19 U/L (7.0-40); AST/SGOT 13 U/L (<34); BILIRUBIN,TOTAL 0.4 MG/DL (0.3-1.2); BLOOD UREA NITROGEN 16 MG/DL (9-23); CALCIUM LEVEL 9.6 MG/DL (8.3-10.6); CARBON DIOXIDE LEVEL 26 MMOL/L (20-31); CHLORIDE LEVEL 106 MMOL/L (98-107); CHOLESTEROL LEVEL 194 MG/DL (<200); CHOLESTEROL RISK RATIO 4.31 (<5); CREATININE FOR GFR 1.06 MG/DL (0.70-1.30); GLOMERULAR FILTRATION RATE > 60.0 (>49); GLUCOSE, FASTING 97 MG/DL (74-106); LDL CHOLESTEROL 119.6 MG/DL (<100); POTASSIUM SERUM 4.5 MMOL/L (3.5-5.1); SODIUM LEVEL 139 MMOL/L (136-145); TOTAL PROTEIN 6.8 G/DL (5.7-8.2); TRIGLYCERIDES LEVEL 147 MG/DL (<150)
== END ==
LOC: M SFHCCAPE 08:38
PROVIDERS: ATTEND Physician Assistant Medical
DX: K21.9 Gastro-esophageal reflux disease without esophagitis (principal); E87.5 Hyperkalemia; E78.1 Pure hyperglyceridemia

== ENCOUNTER → 2023-09-20 | Outpatient (REF) | payer OTHER ==
[2023-09-20 17:31] LABS: BASO % 0.7 % (0.0-1.0); EOS # 0.1 10^3/uL (0.0-0.5); EOS % 3.2 % (0.0-3.0); HEMATOCRIT 37.9 % (42.0-52.0); HEMOGLOBIN 12.3 g/dl (13.5-17.5); LYMPH # 1.7 10^3/uL (1.5-5.0); LYMPH % 38.8 % (24.0-44.0); MEAN CORPUSCULAR HGB CONC 32.5 g/dl (32.0-36.5); MEAN CORPUSCULAR VOLUME 92.4 fl (80.0-96.0); MONO # 0.5 10^3/uL (0.0-0.8); MONO % 10.7 % (2.0-8.0); NEUTROPHILS % 46.4 % (36.0-66.0); PLATELET COUNT, AUTOMATED 234 10^3/uL (150-450); WHITE BLOOD COUNT 4.4 10^3/uL (4.0-10.0)
[2023-09-20 17:41] LABS: ALBUMIN 3.6 G/DL (3.2-5.2); ALKALINE PHOSPHATASE 73 U/L (46-116); ALT/SGPT 18 U/L (7.0-40); AST/SGOT 16 U/L (<34); BILIRUBIN,TOTAL 0.3 MG/DL (0.3-1.2); BLOOD UREA NITROGEN 19 MG/DL (9-23); CALCIUM LEVEL 8.8 MG/DL (8.3-10.6); CARBON DIOXIDE LEVEL 27 MMOL/L (20-31); CHLORIDE LEVEL 107 MMOL/L (98-107); CHOLESTEROL LEVEL 163 MG/DL (<200); CHOLESTEROL RISK RATIO 3.72 (<5); CREATININE FOR GFR 0.96 MG/DL (0.70-1.30); GLOMERULAR FILTRATION RATE > 60.0 (>49); GLUCOSE, FASTING 100 MG/DL (74-106); HDL CHOLESTEROL 43.7 MG/DL (>40); LDL CHOLESTEROL 105.1 MG/DL (<100); NON-HDL-C 119.3 MG/DL; POTASSIUM SERUM 4.5 MMOL/L (3.5-5.1); PSA SCREENING 0.32 NG/ML (< 4.00); SODIUM LEVEL 138 MMOL/L (136-145); TOTAL PROTEIN 6.3 G/DL (5.7-8.2); TRIGLYCERIDES LEVEL 71 MG/DL (<150)
== END ==
LOC: M SFHCCAPE 07:23
PROVIDERS: ATTEND Physician Assistant Medical
DX: K21.9 Gastro-esophageal reflux disease without esophagitis (principal); Z12.5 Encounter for screening for malignant neoplasm of prostate; Z13.1 Encounter for screening for diabetes mellitus; E78.1 Pure hyperglyceridemia

== ENCOUNTER → 2024-03-26 | Outpatient (REF) | payer OTHER ==
[2024-03-26 18:51] LABS: BASO % 0.5 % (0.0-1.0); EOS # 0.1 10^3/uL (0.0-0.5); EOS % 1.7 % (0.0-3.0); HEMATOCRIT 34.7 % (42.0-52.0); LYMPH # 1.6 10^3/uL (1.5-5.0); MEAN CORPUSCULAR HEMOGLOBIN 28.4 pg (27.0-33.0); MEAN CORPUSCULAR HGB CONC 31.7 g/dl (32.0-36.5); MEAN CORPUSCULAR VOLUME 89.7 fl (80.0-96.0); MONO # 0.5 10^3/uL (0.0-0.8); MONO % 11.7 % (2.0-8.0); NEUTROPHILS # 1.9 10^3/uL (1.5-8.5); NEUTROPHILS % 46.1 % (36.0-66.0); PLATELET COUNT, AUTOMATED 249 10^3/uL (150-450); RED BLOOD COUNT 3.87 10^6/uL (4.30-6.10)
[2024-03-26 19:22] LABS: ALBUMIN 3.7 G/DL (3.2-5.2); ALKALINE PHOSPHATASE 73 U/L (40-129); ALT/SGPT 19 U/L (7.0-40); AST/SGOT 15 U/L (<34); BILIRUBIN,TOTAL 0.4 MG/DL (0.3-1.2); BLOOD UREA NITROGEN 17 MG/DL (9-23); CALCIUM LEVEL 9.3 MG/DL (8.3-10.6); CARBON DIOXIDE LEVEL 28 MMOL/L (20-31); CHLORIDE LEVEL 106 MMOL/L (98-107); CREATININE FOR GFR 1.02 MG/DL (0.70-1.30); GLOMERULAR FILTRATION RATE > 60.0 (>49); GLUCOSE, FASTING 99 MG/DL (74-106); IRON (FE) 28 UG/DL (65-175); PERCENT SATURATION 7.8 % (19.7-50.0); POTASSIUM SERUM 4.8 MMOL/L (3.5-5.1); SODIUM LEVEL 138 MMOL/L (136-145); TOTAL IRON BINDING CAPACITY 361 UG/DL (250-425); TOTAL PROTEIN 6.6 G/DL (5.7-8.2)
[2024-03-26 19:24] LABS: FERRITIN 7.6 NG/ML (10.5-307.3); VITAMIN B12 LEVEL 465 PG/ML (211-911)
[2024-03-26 19:25] LABS: FOLATE 13.1 NG/ML (>5.4)
== END ==
LOC: M SFHCCAPE 09:40
PROVIDERS: ATTEND Physician Assistant Medical
DX: D64.9 Anemia, unspecified (principal); Z83.79 Family history of other diseases of the digestive system; K21.9 Gastro-esophageal reflux disease without esophagitis

== ENCOUNTER → 2024-05-12 | Outpatient (CLI) | payer OTHER | LOC: M RAD 14:59 | PROVIDERS: ATTEND Physician Assistant Medical | DX: M54.59 Other low back pain (principal) ==

== ENCOUNTER 2024-06-28 09:02 | Day surgery (SDC) | payer OTHER ==
[~2024-06-28] VITALS: Ht 182.9 cm; Wt 102.1 kg
[~2024-06-28 09:02] MED LIST changes: +ACET-907 PO; +CYCL-707 PO; +MELO15TA28 PO
[2024-06-28] MEDS ORDERED: propofoL 200 MG/20 ML VIAL As Ordered ONE (10:04)
[2024-06-28] MEDS ORDERED: fentaNYL 100 MCG/2 ML INJECTION As Ordered ONE (10:04)
[2024-06-28 10:40] VITALS: TEMP 98.3
[2024-06-28 10:55] VITALS: BP 124/74; O2SAT 95
== END 2024-06-28 11:05 | disposition home or self-care (01) ==
LOC: M OPP 09:02
PROVIDERS: ATTEND Surgery
DX: K44.9 Diaphragmatic hernia without obstruction or gangrene (principal); K25.9 Gastric ulcer, unspecified as acute or chronic, without hemorrhage or perforation; R79.9 Abnormal finding of blood chemistry, unspecified; G47.30 Sleep apnea, unspecified; Z88.6 Allergy status to analgesic agent; Z79.51 Long term (current) use of inhaled steroids; Z79.899 Other long term (current) drug therapy; Z87.891 Personal history of nicotine dependence
CPT/HCPCS: 43239; 88305; J3010

== ENCOUNTER → 2024-09-25 | Outpatient (REF) | payer OTHER ==
[~2024-09-25] MED LIST changes: -FLOM0.4C39 PO; +TAMS-18 PO
[2024-09-25 17:39] LABS: BASO # 0.0 10^3/uL (0.0-0.2); BASO % 0.6 % (0.0-1.0); EOS # 0.2 10^3/uL (0.0-0.5); EOS % 3.0 % (0.0-3.0); LYMPH # 1.5 10^3/uL (1.5-5.0); LYMPH % 29.5 % (24.0-44.0); MONO # 0.5 10^3/uL (0.0-0.8); MONO % 9.6 % (2.0-8.0); NEUTROPHILS # 2.9 10^3/uL (1.5-8.5); NEUTROPHILS % 57.3 % (36.0-66.0); PLATELET COUNT, AUTOMATED 241 10^3/uL (150-450)
[2024-09-25 17:43] LABS: PSA SCREENING 0.35 NG/ML (< 4.00)
[2024-09-25 17:45] LABS: ALT/SGPT 18.0 U/L (7.0-40); AST/SGOT 21.0 U/L (<34); CALCIUM LEVEL 9.8 MG/DL (8.3-10.6); CARBON DIOXIDE LEVEL 26.0 MMOL/L (20-31); CHLORIDE LEVEL 108.0 MMOL/L (98-107); CHOLESTEROL LEVEL 176.0 MG/DL (<200); CHOLESTEROL RISK RATIO 3.62 (<5); CREATININE FOR GFR 1.06 MG/DL (0.70-1.30); GLOMERULAR FILTRATION RATE 78.9 (>49); IRON (FE) 55.0 UG/DL (65-175); LDL CHOLESTEROL 106.2 MG/DL (<100); NON-HDL-C 127.4 MG/DL; PERCENT SATURATION 15.3 % (19.7-50.0); POTASSIUM SERUM 4.6 MMOL/L (3.5-5.1); SODIUM LEVEL 145.0 MMOL/L (136-145); TRIGLYCERIDES LEVEL 106.0 MG/DL (<150)
[2024-09-25 18:31] LABS: ESTIMATED AVERAGE GLUCOSE 100.0 MG/DL (60-110)
== END ==
LOC: M SFHCCAPE 07:11
PROVIDERS: ATTEND Physician Assistant Medical
DX: D64.9 Anemia, unspecified (principal); K21.9 Gastro-esophageal reflux disease without esophagitis; R73.01 Impaired fasting glucose; Z13.220 Encounter for screening for lipoid disorders; Z12.5 Encounter for screening for malignant neoplasm of prostate
CPT/HCPCS: 36415; 80053; 80061; 82728; 83036; 83550; 85025; G0103

== ENCOUNTER → 2024-10-23 | Outpatient (REF) | payer OTHER ==
[2024-10-23 18:22] LABS: CREATININE FOR GFR 1.0 MG/DL (0.70-1.30); GLOMERULAR FILTRATION RATE 84.6 (>49)
== END ==
LOC: M LABDRWCV 17:26
PROVIDERS: ATTEND Physician Assistant Medical
DX: R13.10 Dysphagia, unspecified (principal); R22.1 Localized swelling, mass and lump, neck

== ENCOUNTER → 2024-10-29 | Outpatient (CLI) | payer OTHER ==
[~2024-10-29] MED LIST changes: +ISOVUE-370 76% 100 ML VIAL ONE
== END ==
LOC: M PLAIMG 09:19
PROVIDERS: ATTEND Physician Assistant Medical
DX: R22.1 Localized swelling, mass and lump, neck (principal)
CPT/HCPCS: 70491; Q9967